=== PATIENT | male | born 1965 | race African-American/Black ===

== ENCOUNTER → 2017-07-01 | Outpatient (POV) | payer MEDICARE, MEDICAID, SELFPAY | PROVIDERS: Family Provider Emergency Medicine; PCP Emergency Medicine; Visit Provider Specialist | DX: R29.898 Other symptoms and signs involving the musculoskeletal system (principal); M79.601 Pain in right arm; M54.12 Radiculopathy, cervical region | CPT/HCPCS: 95819 ==

== ENCOUNTER → 2017-07-01 | Outpatient (POV) | payer MEDICARE, MEDICAID, SELFPAY | PROVIDERS: Family Provider Emergency Medicine; PCP Emergency Medicine; Visit Provider Specialist | DX: M79.601 Pain in right arm (principal); R29.898 Other symptoms and signs involving the musculoskeletal system; M54.12 Radiculopathy, cervical region ==

== ENCOUNTER → 2017-07-08 | Outpatient (POV) | payer MEDICARE, MEDICAID, SELFPAY | PROVIDERS: PCP Emergency Medicine; Visit Provider Specialist | DX: M79.601 Pain in right arm (principal); R29.898 Other symptoms and signs involving the musculoskeletal system; M54.12 Radiculopathy, cervical region | CPT/HCPCS: 95886; 95912 ==

== ENCOUNTER → 2017-08-05 | Outpatient (POV) | payer MEDICARE, MEDICAID, SELFPAY | PROVIDERS: Family Provider Emergency Medicine; PCP Emergency Medicine; Referring Provider Emergency Medicine; Visit Provider Nurse Anesthetist, Certified Registered | DX: G90.511 Complex regional pain syndrome I of right upper limb (principal) | CPT/HCPCS: 99202 ==

== ENCOUNTER 2018-04-18 09:30 | Inpatient (IN) ==
--- NOTE | 2018-04-18 09:37 | Emergency Department Note ---
ED Disposition Clinical Impression: Bilateral pneumonia Qualifiers: Pneumonia type: due to unspecified organism Lung location: unspecified part of lung Qualified Code(s): J18.9 - Pneumonia, unspecified organism Sepsis Qualifiers: Sepsis type: sepsis due to unspecified organism Qualified Code(s): A41.9 - Sepsis, unspecified organism UTI (urinary tract infection) Qualifiers: Urinary tract infection type: site unspecified Hematuria presence: without hematuria Qualified Code(s): N39.0 - Urinary tract infection, site not specified Disposition: Still a Patient Condition on Discharge: Serious - Critical Care Critical Care Time: Yes Attestation: On , the high probability of a clinically significant, sudden or life threatening deterioration of the following system(s) required my full and direct attention, intervention and personal management. The time I documented below is in addition to time spent performing reported procedures but includes the following listed in this critical care notation. Total Critical Care Time: 35 Vital system(s) involved:: Shock (Septic) My critical care processes included: Assessment & monitoring of V/S, Initial and Re-exams, Data Review/Interpretation, Coordinating Care, Medication Orders and management, Documentation Medical Decision Making - Mac Inquiry Pt receiving controlled substance: No Vital Signs: 04/18/18 09:31 04/18/18 09:45 04/18/18 10:08 Temperature 99.6 F Temperature Source Oral Pulse Rate [Left Radial] 90 87 Respiratory Rate 16 Blood Pressure [Right Arm] 83/43 92/44 97/57 Blood Pressure Mean [Right Arm] 56 60 70 Blood Pressure Source [Right Arm] Automatic Cuff Automatic Cuff Blood Pressure Position [Right Arm] Sitting Sitting 02 Sat by Pulse Oximetry 99 Oxygen Delivery Method 04/18/18 10:23 04/18/18 10:38 04/18/18 10:46 Temperature Temperature Source Pulse Rate [Left Radial] 83 86 Respiratory Rate 14 Blood Pressure [Right Arm] 108/61 99/69 106/63 Blood Pressure Mean [Right Arm] 76 79 77 Blood Pressure Source [Right Arm] Automatic Cuff Automatic Cuff Blood Pressure Position [Right Arm] Sitting Sitting 02 Sat by Pulse Oximetry 98 Oxygen Delivery Method Room Air 04/18/18 10:59 04/18/18 11:16 04/18/18 11:33 Temperature Temperature Source Pulse Rate [Left Radial] 73 76 Respiratory Rate Blood Pressure [Right Arm] 102/57 102/67 106/68 Blood Pressure Mean [Right Arm] 72 78 80 Blood Pressure Source [Right Arm] Automatic Cuff Automatic Cuff Automatic Cuff Blood Pressure Position [Right Arm] Sitting Sitting Sitting 02 Sat by Pulse Oximetry 100 100 Oxygen Delivery Method - Lab Data Lab Results 04/18/18 10:18: WBC 15.2 H, RBC 3.90 L, Hgb 10.9 L, Hct 33.7 L, MCV 86.4, MCH 27.9, MCHC 32.3, RDW 14.3, Plt Count 216, MPV 7.7, Neut % (Auto) 81.4 H, Lymph % (Auto) 10.8, [place] % (Auto) 7.4, Eos % (Auto) 0.2, Baso % (Auto) 0.2, Neut # ( Auto) 12.4 H, Lymph # (Auto) 1.7, [place] # (Auto) 1.1 H, Eos # (Auto) 0.0, Baso # (Auto) 0.0, Total Counted 100, Neutrophils % (Manual) 78 H, Band Neutrophils % 5.0, Lymphocytes % (Manual) 11, Monocytes % (Manual) 3, Eosinophils % (Manual) 1 , Metamyelocytes % 2.0 H, Platelet Estimate Normal, RBC Morphology Normal 04/18/18 10:18: Troponin I 0.04, Total Valproic Acid 63.1 04/18/18 10:18: Lactate 1.7 04/18/18 10:18: Ammonia 9 L 04/18/18 10:18: Sodium 142, Potassium 3.9, Chloride 106, Carbon Dioxide 25, Anion Gap 14.9, BUN 35 H, Creatinine 2.93 H, Estimated Creat Clear 46, Estimated GFR 23 L, Est GFR ( Amer) 27 L, Glucose 104, Calcium 8.1 L, Total Bilirubin 0.5, AST 107 H, ALT 31, Alkaline Phosphatase 92, Total Protein 6.8, Albumin 3.1 L, Globulin 3.7 H, Albumin/Globulin Ratio 0.8 L 04/18/18 10:22: Urine Color Yellow, Urine Appearance Sl cloudy, Urine pH 6.0, Ur Specific [place] 1.025, Urine Protein Trace, Urine Glucose (UA) Negative, Urine Ketones Trace, Urine Blood Negative, Urine Nitrate Positive, Urine Bilirubin Negative, Urine Urobilinogen 1.0, Ur Leukocyte Esterase 1+ A, Urine RBC Occasional, Urine WBC 20-50, Ur Squamous Epith Cells 3-5, Urine Bacteria 4+ Result diagrams: 04/18/18 10:18 04/18/18 10:18 Orders (Tests/Meds): ED MEDICATIONS Generic Name Dose Route Start Last Admin Trade Name Freq PRN Reason Stop Dose Admin Azithromycin 500 mg/ Sodium 250 mls @ 250 mls/hr 04/18/18 10:30 04/18/18 11: 21 Chloride IV 05/02/18 10:29 250 mls/hr Q24H JENNIFER Administration Protocol Ceftriaxone Sodium 1 gm/ 50 mls @ 100 mls/hr 04/18/18 10:30 04/18/18 10:43 Sodium Chloride IV 05/02/18 10:29 100 mls/hr Q24H JENNIFER Administration Protocol Discontinued Medications Generic Name Dose Route Start Last Admin Trade Name Magdalenoq PRN Reason Stop Dose Admin Sodium Chloride 500 mls @ 500 mls/hr 04/18/18 10:45 04/18/18 09:30 Sod Chlor 0.9% 500ml Bag IV 04/18/18 11:44 500 mls/hr .Q1H JENNIFER Administration Sodium Chloride 1,000 mls @ 999 mls/hr 04/18/18 10:45 04/18/18 10:42 Sod Chlor 0.9% 1000ml Bag IV 04/18/18 11:45 999 mls/hr .Q1H1M JENNIFER Administration Sodium Chloride 1,000 mls @ 999 mls/hr 04/18/18 10:45 04/18/18 10:56 Sod Chlor 0.9% 1000ml Bag IV 04/18/18 11:45 999 mls/hr .Q1H1M JENNIFER Administration Sodium Chloride 1,000 ml 04/18/18 09:46 04/18/18 09:40 Sod Chlor 0.9% 1000ml Bag IV 04/18/18 09:47 1,000 ml BOLUS ONE Administration ORDERS Category Date Time Status Diarrhea Panel, PCR Stat Lab 04/18/18 09:47 Ordered Blood Culture Stat Micro 04/18/18 09:51 Ordered Urine Culture Stat Micro 04/18/18 10:22 Received - Radiology Data #1 Image(s): Chest Image Reviewed: Yes I reviewed the patient's radiology image Right upper lobe, left lower lobe, and possibly the right lower lobe infiltrates. - ECG Data Tracing #1 EKG interpreted by Dewayne Allen MD: Rhythm: sinus Rate: [address] [place]: Left Ectopy: none Conduction: normal ST Segment Changes: none T Wave Changes: Nonspecific Q Waves: none LVH Prior electrocardiagrams reviewed. No change from prior tracings. - Physician Consults Physician Consulted: Maya Time: 11:34 Reason -: Admission Comment/Response: Agrees to admit the patient to the hospital. We discussed the patient's clinical information, including history, exam, laboratory and radiology results and ED course. Per hospital procedure, I will write temporary bridge inpatient orders on the patient. Specific orders requested by the admitting physician: Continue antibiotics, IV fluids - Tissue Perfus/Sepsis Re-Eval Reperfusion Exam Performed: Yes Date Performed: 04/18/18 Time Performed: 11:24 Sepsis Follow-Up: Yes: Respiratory exam, Cardiovascular exam, Capillary refill, Peripheral pulse strength, Peripheral pulse location, Skin exam, Vital Signs General Adult HPI - General Chief complaint: Weakness Stated complaint: hypotension Time Seen by Provider: 04/18/18 09:37 - History of Present Illness HPI narrative: Brought in by parents from halfway. Report is low blood pressure. Patient denies any pain. Says he feels "okay". Endorses diarrhea, but denies cough, URI symptoms, vomiting, fever. - Related Data Home Medications Medication Instructions Recorded Confirmed Divalproex Sodium [Depakote] 500 mg PO HS 04/18/18 04/18/18 Gabapentin [Gabapentin 800mg Tab] 800 mg PO BID 04/18/18 04/18/18 Haloperidol 10 mg PO TID 04/18/18 04/18/18 Insulin Detemir [Levemir 100 15 unit SQ HS 04/18/18 04/18/18 units/mL 10mL vial] LORazepam [Ativan 0.5mg tablet] 0.5 mg PO TID 04/18/18 04/18/18 Linagliptin [Tradjenta] 5 mg PO DAILY 04/18/18 04/18/18 Metformin HCl [Metformin 500mg 1,000 mg PO BID 04/18/18 04/18/18 Tablet] Pioglitazone HCl 15 mg PO DAILY 04/18/18 04/18/18 Quetiapine Fumarate [Seroquel 400 mg PO BID 08/24/18 08/24/18 100mg Tablet] risperiDONE [Risperidone] 4 mg PO BID 04/18/18 04/18/18 Allergies Allergy/AdvReac Type Severity Reaction Status Date / Time No Known Allergies Allergy Verified 04/18/18 09:58 [facility] History I have reviewed the patient's past medical history: Yes ROS Obtained: Yes All systems reviewed & no additional complaints - Constitutional Constitutional: Denies fever(s) - ENT Ears, Nose, Mouth, and Throat: Denies nasal discharge, Denies sore throat - Cardiovascular Cardiovascular: Denies chest pain - Respiratory Respiratory: No cough, No dyspnea - Gastrointestinal Gastrointestingal: Reports: diarrhea. Denies: abdominal pain, vomiting - Genitourinary Male Genitourinary: Denies difficulty urinating - Musculoskeletal Musculoskeletal: Denies back pain, Denies neck pain - Neurologic Neurologic: Denies headache(s) Physical Exam - General General appearance: in no apparent distress Comment: With eyes closed. Opens eyes on command. Slow to respond, but answers questions appropriately. Speech difficult to understand, mumbles. Food present in mouth. - Head Head exam: atraumatic, normocephalic, normal inspection - Eye Eye exam: Present: normal appearance, PERRL, EOMI - ENT ENT exam: Present: mucous membranes dry - Neck Neck exam: Present: normal inspection, full ROM, trachea midline. Absent: meningismus, lymphadenopathy - Chest Chest inspection: Present: normal inspection, symmetric chest wall rise. Absent : tenderness - Respiratory Respiratory exam: Present: normal lung sounds bilaterally. Absent: respiratory distress - Cardiovascular Cardiovascular exam: Present: regular rate, normal rhythm. Absent: JVD - Abdominal Exam Abdominal exam: Present: soft, normal bowel sounds. Absent: distention, tenderness, guarding - Extremities Exam Extremities exam: Present: normal inspection, full ROM, normal capillary refill. Absent: calf tenderness - Back Exam Back exam: Present: normal inspection. Absent: tenderness - Neurological Exam Neurological exam: Present: alert, other (knows day of week, but not year. knows he's in the hospital) - Psychiatric Psychiatric exam: Present: flat affect - Skin Skin exam: Present: warm, dry, intact, normal color
[2018-04-18 10:37] LABS: Basophils % 0.2 % (0.1-2.0); Eosinophils % 0.2 % (0.1-12.0); Hematocrit 33.7 % (42.0-52.0); Hemoglobin 10.9 g/dL (14.1-18.0); Lymphocytes # 1.7 K/mm3 (0.7-4.5); Lymphocytes % 10.8 K/mm3 (10-50); Mean Corpuscular HGB Conc 32.3 g/dL (31.8-35.4); Mean Corpuscular Hemoglobin 27.9 pg (27.0-31.2); Mean Corpuscular Volume 86.4 fl (80-94); Mean Platelet Volume 7.7 fl (7.4-10.4); Monocytes # 1.1 K/mm3 (0.1-1.0); Monocytes % 7.4 % (1.7-9.3); Neutrophils # 12.4 K/mm3 (1.8-7.8); Neutrophils % 81.4 % (37.0-80.0); Platelet Count 216 K/mm3 (142-424); Red Cell Distribution Width 14.3 % (11.5-17.5); White Blood Count 15.2 K/mm3 (4.8-10.8)
[2018-04-18 10:56] LABS: Microscopic, Urine URINE MICROSCOPIC (MICROSCOPIC)
[2018-04-18 11:08] LABS: Eosinophils % 1 % (0-3); Lymphocytes % 11 % (10-50); Monocytes % 3 % (2-9); Neutrophils % 78 % (42-76); Total Cells Counted 100
[2018-04-18 11:09] LABS: RBC Morphology Normal
[2018-04-18 11:18] LABS: Appearance,Urine SL CLOUDY (Clear); Blood, Urine Negative (Negative); Color,Urine YELLOW (Yellow); Glucose,Urine (UA) Negative (Negative); Ketones,Urine TRACE (Negative); Leukocyte Esterase,Urine 1+ (Negative); Protein,Urine TRACE (Negative); Specific Gravity, Urine 1.025 (1.005-1.030)
[2018-04-18 11:27] LABS: Valproic Acid, (Depakene) 63.1 ug/mL (50-100)
[2018-04-18 11:35] LABS: Anion Gap 14.9 mEq/L (5-15); Bilirubin,Total 0.5 mg/dL (0.2-1.0); Calcium 8.1 mg/dL (8.5-10.1); Potassium 3.9 mmoL/L (3.5-5.1)
[2018-04-18 11:36] LABS: Albumin Level 3.1 gm/dL (3.4-5.0); Albumin/Globulin Ratio 0.8 (1.1-1.8); Globulin 3.7 gm/dl (1.3-3.2); Total Protein,Serum 6.8 gm/dL (6.4-8.2)
[2018-04-18 11:41] LABS: Bilirubin,Urine Negative (Negative)
[2018-04-18 11:42] LABS: Bacteria,Urine 4+ /lpf; RBC,Urine Occasional #/hpf (0-3); WBC,Urine 20-50 #/hpf (0-3)
--- NOTE | 2018-04-18 12:32 | History & Physical Report ---
*Admission Date: 04/18/18 *Chief complaint: syncope *History of present illness: this black male from shelter -pt had not been feeling well over the last few days but declined to come to ed and had syncopal episode at shelter and was brought to ed - eport is low blood pressure. Patient denies any pain. Says he feels "okay". Endorses diarrhea, but denies cough, URI symptoms, vomiting, fever.pt is poor historian and was found to have cap-pt was admitted for ivf and abx [facility] History I have reviewed the patient's past medical history: Yes Medical History: Reports:: Diabetes Mellitus Type 2 - *Social History Alcohol Intake: never - Psychiatric History Expresses thoughts of harming self/others: None Suicide Plan Description: Clear Review of Systems - Review of Systems Review of systems:: pertinent systems reviewed and negative unless documented below - Constitutional Reports weakness, Denies fever(s) - Eyes Denies change in vision - ENT Denies sore throat - *Cardiovascular Reports fainting, Denies chest pain - *Respiratory Reports shortness of breath - *Gastrointestinal Denies abdominal pain - *Genitourinary Denies blood in urine - *Musculoskeletal Denies joint pain - Integumentary/Breasts Denies rash - *Neurologic Denies headache(s) - Psychiatric Reports anxiety Meds Home Medications Medication Instructions Recorded Confirmed Type Benztropine Mesylate 0.5 mg PO BID 04/18/18 04/18/18 History Divalproex Sodium [Depakote] 500 mg PO HS 04/18/18 04/18/18 History Doxepin HCl [Sinequan 25mg capsule] 25 mg PO TID 04/18/18 04/18/18 History Gabapentin [Gabapentin 800mg Tab] 800 mg PO BID 04/18/18 04/18/18 History Haloperidol 10 mg PO TID 04/18/18 04/18/18 History Insulin Detemir [Levemir 100 15 unit SQ DAILY 04/18/18 04/18/18 History units/mL 10mL vial] LORazepam [Ativan 0.5mg tablet] 0.5 mg PO TIDP PRN 04/18/18 04/18/18 History Linagliptin [Tradjenta] 5 mg PO DAILY 04/18/18 04/18/18 History Loratadine [Claritin] 10 mg PO DAILYP PRN 04/18/18 04/18/18 History Metformin HCl [Metformin 500mg 1,000 mg PO BIDWM 04/18/18 04/18/18 History Tablet] OXcarbazepine [Trileptal 300mg 600 mg PO BID 04/18/18 04/18/18 History tablet] Pioglitazone HCl 15 mg PO DAILY 04/18/18 04/18/18 History Quetiapine Fumarate [Seroquel 400 mg PO BID 04/18/18 04/18/18 History 100mg Tablet] risperiDONE [Risperidone] 4 mg PO BID 04/18/18 04/18/18 History Allergies Allergy/AdvReac Type Severity Reaction Status Date / Time No Known Allergies Allergy Verified 04/18/18 09:58 Exam Vital signs and Labs for Last 24 Hours: Temp Pulse Resp BP Pulse Ox 98 F 80 18 99/53 98 04/18/18 12:28 04/18/18 12:28 04/18/18 12:28 04/18/18 12:28 04/18/18 11:54 Laboratory Results - last 24 hr 04/18/18 10:18: WBC 15.2 H, RBC 3.90 L, Hgb 10.9 L, Hct 33.7 L, MCV 86.4, MCH 27.9, MCHC 32.3, RDW 14.3, Plt Count 216, MPV 7.7, Neut % (Auto) 81.4 H, Lymph % (Auto) 10.8, [place] % (Auto) 7.4, Eos % (Auto) 0.2, Baso % (Auto) 0.2, Neut # ( Auto) 12.4 H, Lymph # (Auto) 1.7, [place] # (Auto) 1.1 H, Eos # (Auto) 0.0, Baso # (Auto) 0.0, Total Counted 100, Neutrophils % (Manual) 78 H, Band Neutrophils % 5.0, Lymphocytes % (Manual) 11, Monocytes % (Manual) 3, Eosinophils % (Manual) 1 , Metamyelocytes % 2.0 H, Platelet Estimate Normal, RBC Morphology Normal 04/18/18 10:18: Troponin I 0.04, Total Valproic Acid 63.1 04/18/18 10:18: Lactate 1.7 04/18/18 10:18: Ammonia 9 L 04/18/18 10:18: Sodium 142, Potassium 3.9, Chloride 106, Carbon Dioxide 25, Anion Gap 14.9, BUN 35 H, Creatinine 2.93 H, Estimated Creat Clear 46, Estimated GFR 23 L, Est GFR ( Amer) 27 L, Glucose 104, Calcium 8.1 L, Total Bilirubin 0.5, AST 107 H, ALT 31, Alkaline Phosphatase 92, Total Protein 6.8, Albumin 3.1 L, Globulin 3.7 H, Albumin/Globulin Ratio 0.8 L 04/18/18 10:22: Urine Color Yellow, Urine Appearance Sl cloudy, Urine pH 6.0, Ur Specific [place] 1.025, Urine Protein Trace, Urine Glucose (UA) Negative, Urine Ketones Trace, Urine Blood Negative, Urine Nitrate Positive, Urine Bilirubin Negative, Urine Urobilinogen 1.0, Ur Leukocyte Esterase 1+ A, Urine RBC Occasional, Urine WBC 20-50, Ur Squamous Epith Cells 3-5, Urine Bacteria 4+ I & O for Last 24 hours: Intake & Output 04/16/18 04/17/18 04/18/18 04/19/18 11:59 11:59 11:59 11:59 Weight 250 lb - Constitutional no acute distress - *Routine HEENT Exam Head: Present: normocephalic Eye: Present: EOMI, PERRL ENT: Present: mucous membranes dry - *Routine Neck Exam Present: supple - *Routine Respiratory Exam Present: CTA bilaterally - *Routine Cardiovascular Exam Present: murmur - *Routine Abdominal Exam Present: soft - *Routine Extremities Exam Absent: calf tenderness - *Routine Skin Exam Present: intact - *Routine Neurological Exam Present: alert, oriented X3, CN II-XII intact - Routine Psychiatric Exam Present: normal affect Assessment and Plan (1) CAP (community acquired pneumonia) Current visit: Yes Status: Acute Category: Medical Code(s): J18.9 - Pneumonia, unspecified organism (2) Bilateral pneumonia Current visit: Yes Status: Acute Qualifiers: Pneumonia type: due to unspecified organism Lung location: unspecified part of lung Qualified Code(s): J18.9 - Pneumonia, unspecified organism Category: Medical Code(s): J18.9 - Pneumonia, unspecified organism (3) UTI (urinary tract infection) Current visit: Yes Status: Acute Qualifiers: Urinary tract infection type: site unspecified Hematuria presence: without hematuria Qualified Code(s): N39.0 - Urinary tract infection, site not specified Category: Medical Code(s): N39.0 - Urinary tract infection, site not specified (4) Anemia Current visit: Yes Status: Acute Qualifiers: Anemia type: unspecified type Qualified Code(s): D64.9 - Anemia, unspecified Category: Medical Code(s): D64.9 - Anemia, unspecified (5) Renal insufficiency Current visit: Yes Status: Acute Category: Medical Code(s): N28.9 - Disorder of kidney and ureter, unspecified
--- NOTE | 2018-04-18 16:12 | Pharmacy Consult Notes ---
[facility] Pharmacy VTE Monitoring - Patient Demographics Admission date: 04/18/18 Report Date: 04/18/18 Time: 16:12 Allergies/Adverse Reactions: Patient Allergies No Known Allergies Allergy (Verified 04/18/18 09:58) Height: 1.8 m Weight: 105.46 kg Patient Problems: Current Active Problems Bilateral pneumonia (Acute) Sepsis (Acute) UTI (urinary tract infection) (Acute) - VTE Risk Labs: VTE Related Lab Results Hgb 10.9 g/dL (14.1-18.0) L 04/18/18 10:18 Hct 33.7 % (42.0-52.0) L 04/18/18 10:18 Plt Count 216 K/mm3 (142-424) 04/18/18 10:18 BUN 35 mg/dL (7-18) H 04/18/18 10:18 Creatinine 2.93 mg/dL (0.70-1.30) H 04/18/18 10:18 Estimated Creat Clear 46 mL/min (0-300) 04/18/18 10:18 Was VTE Risk Assessment Performed: Yes VTE Score: 3 VTE Risk Level: Low Risk Clinical Trial Participant: No - Prophylaxis VTE Prophylaxis Ordered?: Yes Types of VTE Prophylaxis: TEDS Knee High Location of Applied Device: Right Leg, Left Leg
[2018-04-19 06:38] LABS: Basophils % 0.1 % (0.1-2.0); Eosinophils # 0.2 K/mm3 (0.0-0.4); Eosinophils % 1.4 % (0.1-12.0); Hematocrit 33.5 % (42.0-52.0); Hemoglobin 10.5 g/dL (14.1-18.0); Lymphocytes # 1.2 K/mm3 (0.7-4.5); Mean Corpuscular HGB Conc 31.4 g/dL (31.8-35.4); Mean Corpuscular Hemoglobin 27.5 pg (27.0-31.2); Mean Corpuscular Volume 87.5 fl (80-94); Mean Platelet Volume 7.9 fl (7.4-10.4); Monocytes # 0.7 K/mm3 (0.1-1.0); Monocytes % 6.7 % (1.7-9.3); Neutrophils # 8.9 K/mm3 (1.8-7.8); Platelet Count 188 K/mm3 (142-424); Red Blood Count 3.82 M/mm3 (4.60-6.20); Red Cell Distribution Width 14.3 % (11.5-17.5)
[2018-04-19 06:51] LABS: Anion Gap 12.2 mEq/L (5-15); Calcium 8.3 mg/dL (8.5-10.1); Potassium 4.2 mmoL/L (3.5-5.1)
--- NOTE | 2018-04-19 08:52 | Progress Note ---
Internal Medicine - PN: Subj *Date: 04/20/18 *Time: 09:16 Interval history: doing better - more alert Exam Vital signs and Labs for Last 24 Hours: Temp Pulse Resp BP Pulse Ox 99.7 F H 93 H 20 113/56 96 04/19/18 08:21 04/19/18 08:21 04/19/18 08:21 04/19/18 08:21 04/19/18 08:21 Laboratory Results - last 24 hr 04/18/18 10:18: WBC 15.2 H, RBC 3.90 L, Hgb 10.9 L, Hct 33.7 L, MCV 86.4, MCH 27.9, MCHC 32.3, RDW 14.3, Plt Count 216, MPV 7.7, Neut % (Auto) 81.4 H, Lymph % (Auto) 10.8, [place] % (Auto) 7.4, Eos % (Auto) 0.2, Baso % (Auto) 0.2, Neut # ( Auto) 12.4 H, Lymph # (Auto) 1.7, [place] # (Auto) 1.1 H, Eos # (Auto) 0.0, Baso # (Auto) 0.0, Total Counted 100, Neutrophils % (Manual) 78 H, Band Neutrophils % 5.0, Lymphocytes % (Manual) 11, Monocytes % (Manual) 3, Eosinophils % (Manual) 1 , Metamyelocytes % 2.0 H, Platelet Estimate Normal, RBC Morphology Normal 04/18/18 10:18: Troponin I 0.04, Total Valproic Acid 63.1 04/18/18 10:18: Lactate 1.7 04/18/18 10:18: Ammonia 9 L 04/18/18 10:18: Sodium 142, Potassium 3.9, Chloride 106, Carbon Dioxide 25, Anion Gap 14.9, BUN 35 H, Creatinine 2.93 H, Estimated Creat Clear 46, Estimated GFR 23 L, Est GFR ( Amer) 27 L, Glucose 104, Calcium 8.1 L, Total Bilirubin 0.5, AST 107 H, ALT 31, Alkaline Phosphatase 92, Total Protein 6.8, Albumin 3.1 L, Globulin 3.7 H, Albumin/Globulin Ratio 0.8 L 04/18/18 10:22: Urine Color Yellow, Urine Appearance Sl cloudy, Urine pH 6.0, Ur Specific [place] 1.025, Urine Protein Trace, Urine Glucose (UA) Negative, Urine Ketones Trace, Urine Blood Negative, Urine Nitrate Positive, Urine Bilirubin Negative, Urine Urobilinogen 1.0, Ur Leukocyte Esterase 1+ A, Urine RBC Occasional, Urine WBC 20-50, Ur Squamous Epith Cells 3-5, Urine Bacteria 4+ 04/18/18 15:48: POC Glucose 107 04/18/18 21:21: POC Glucose 102 04/19/18 06:13: WBC 11.0 H D, RBC 3.82 L, Hgb 10.5 L, Hct 33.5 L, MCV 87.5, MCH 27.5, MCHC 31.4 L, RDW 14.3, Plt Count 188, MPV 7.9, Neut % (Auto) 81.0 H, Lymph % (Auto) 11.0, [place] % (Auto) 6.7, Eos % (Auto) 1.4, Baso % (Auto) 0.1, Neut # (Auto) 8.9 H, Lymph # (Auto) 1.2, [place] # (Auto) 0.7, Eos # (Auto) 0.2, Baso # (Auto) 0.0 04/19/18 06:13: Sodium 141, Potassium 4.2, Chloride 108 H, Carbon Dioxide 25, Anion Gap 12.2, BUN 22 H D, Creatinine 1.65 H D, Estimated Creat Clear 76, Estimated GFR 44 L, Est GFR ( Amer) 53 L D, Glucose 113 H, Calcium 8.3 L 04/19/18 06:23: POC Glucose 94 I & O for Last 24 hours: Intake & Output 04/16/18 04/17/18 04/18/18 04/19/18 11:59 11:59 11:59 11:59 Intake Total 3488 / 3488 Output Total 1350 / 1350 Balance 2138 / 2138 Weight 232 lb 7.992 oz 232 lb 8 oz Microbiology Reports for the Last 24 Hours: Microbiology 04/18/18 10:22 Urine,Catheterized Urine Culture - Preliminary Gram Negative Rods - Constitutional no acute distress, obese - *Routine HEENT Exam Head: Present: normocephalic Eye: Present: EOMI, PERRL ENT: Present: mucous membranes dry - *Routine Neck Exam Present: supple - *Routine Respiratory Exam Present: rhonchi - *Routine Cardiovascular Exam Present: RRR, murmur - *Routine Abdominal Exam Present: soft - *Routine Extremities Exam Absent: calf tenderness - *Routine Skin Exam Present: intact - *Routine Neurological Exam Present: alert, CN II-XII intact - Routine Psychiatric Exam Present: normal affect Assessment and Plan (1) CAP (community acquired pneumonia) Current visit: Yes Status: Acute Category: Medical Code(s): J18.9 - Pneumonia, unspecified organism (2) Bilateral pneumonia Current visit: Yes Status: Acute Qualifiers: Pneumonia type: due to unspecified organism Lung location: unspecified part of lung Qualified Code(s): J18.9 - Pneumonia, unspecified organism Category: Medical Code(s): J18.9 - Pneumonia, unspecified organism (3) UTI (urinary tract infection) Current visit: Yes Status: Acute Qualifiers: Urinary tract infection type: site unspecified Hematuria presence: without hematuria Qualified Code(s): N39.0 - Urinary tract infection, site not specified Category: Medical Code(s): N39.0 - Urinary tract infection, site not specified (4) Anemia Current visit: Yes Status: Acute Qualifiers: Anemia type: unspecified type Qualified Code(s): D64.9 - Anemia, unspecified Category: Medical Code(s): D64.9 - Anemia, unspecified (5) Renal insufficiency Current visit: Yes Status: Acute Category: Medical Code(s): N28.9 - Disorder of kidney and ureter, unspecified
--- NOTE | 2018-04-20 09:20 | Progress Note ---
Internal Medicine - PN: Subj *Date: 04/20/18 *Time: 09:17 Interval history: doing ok with positive uti Exam Vital signs and Labs for Last 24 Hours: Temp Pulse Resp BP Pulse Ox 98.2 F 79 18 149/76 96 04/20/18 07:32 04/20/18 07:32 04/20/18 07:32 04/20/18 07:32 04/20/18 07:49 Laboratory Results - last 24 hr 04/19/18 09:05: Total Valproic Acid 39.6 L 04/19/18 12:10: POC Glucose 57 L 04/19/18 12:52: POC Glucose 117 H 04/19/18 16:50: POC Glucose 81 04/19/18 20:04: POC Glucose 131 H 04/20/18 06:22: POC Glucose 97 I & O for Last 24 hours: Intake & Output 04/17/18 04/18/18 04/19/18 04/20/18 11:59 11:59 11:59 11:59 Intake Total 3728 / 3728 2123 Output Total 1350 / 1350 Balance 2378 / 2378 2123 Weight 232 lb 7.992 oz 232 lb 8 oz 232 lb 4 oz Microbiology Reports for the Last 24 Hours: Microbiology 04/18/18 10:22 Urine,Catheterized Urine Culture - Final Escherichia coli - Constitutional no acute distress - *Routine HEENT Exam Head: Present: normocephalic Eye: Present: EOMI, PERRL ENT: Present: mucous membranes dry - *Routine Neck Exam Absent: JVD - *Routine Respiratory Exam Present: rhonchi. Absent: respiratory distress - *Routine Cardiovascular Exam Present: RRR, murmur - *Routine Abdominal Exam Present: soft - *Routine Extremities Exam Absent: calf tenderness - *Routine Skin Exam Present: intact - *Routine Neurological Exam Present: alert, CN II-XII intact - Routine Psychiatric Exam Present: normal affect Assessment and Plan (1) CAP (community acquired pneumonia) Current visit: Yes Status: Acute Category: Medical Code(s): J18.9 - Pneumonia, unspecified organism (2) Bilateral pneumonia Current visit: Yes Status: Acute Qualifiers: Pneumonia type: due to unspecified organism Lung location: unspecified part of lung Qualified Code(s): J18.9 - Pneumonia, unspecified organism Category: Medical Code(s): J18.9 - Pneumonia, unspecified organism (3) UTI (urinary tract infection) Current visit: Yes Status: Acute Qualifiers: Urinary tract infection type: site unspecified Hematuria presence: without hematuria Qualified Code(s): N39.0 - Urinary tract infection, site not specified Category: Medical Code(s): N39.0 - Urinary tract infection, site not specified (4) Anemia Current visit: Yes Status: Acute Qualifiers: Anemia type: unspecified type Qualified Code(s): D64.9 - Anemia, unspecified Category: Medical Code(s): D64.9 - Anemia, unspecified (5) Renal insufficiency Current visit: Yes Status: Acute Category: Medical Code(s): N28.9 - Disorder of kidney and ureter, unspecified (6) E. coli UTI (urinary tract infection) Current visit: Yes Status: Acute Category: Medical Code(s): N39.0 - Urinary tract infection, site not specified; B96.20 - Unspecified Escherichia coli [E. coli] as the cause of diseases classified elsewhere (7) Diabetes mellitus Current visit: Yes Status: Acute Qualifiers: Diabetes mellitus type: type 1 Diabetes mellitus complication status: with kidney complications Diabetes mellitus complication detail: with nephropathy Qualified Code(s): E10.21 - Type 1 diabetes mellitus with diabetic nephropathy Category: Medical Code(s): E11.9 - Type 2 diabetes mellitus without complications
[2018-04-21 08:03] LABS: Basophils % 0.3 % (0.1-2.0); Eosinophils # 0.2 K/mm3 (0.0-0.4); Eosinophils % 2.9 % (0.1-12.0); Hematocrit 35.4 % (42.0-52.0); Lymphocytes # 1.3 K/mm3 (0.7-4.5); Lymphocytes % 19.7 K/mm3 (10-50); Mean Corpuscular HGB Conc 31.1 g/dL (31.8-35.4); Mean Corpuscular Hemoglobin 26.9 pg (27.0-31.2); Mean Corpuscular Volume 86.3 fl (80-94); Mean Platelet Volume 7.8 fl (7.4-10.4); Monocytes # 0.5 K/mm3 (0.1-1.0); Monocytes % 7.5 % (1.7-9.3); Neutrophils # 4.7 K/mm3 (1.8-7.8); Neutrophils % 69.6 % (37.0-80.0); Platelet Count 215 K/mm3 (142-424); Red Cell Distribution Width 14.2 % (11.5-17.5); White Blood Count 6.8 K/mm3 (4.8-10.8)
[2018-04-21 08:12] LABS: Anion Gap 14.9 mEq/L (5-15); Potassium 3.9 mmoL/L (3.5-5.1)
[2018-04-21 08:34] LABS: Calcium 9.3 mg/dL (8.5-10.1)
--- NOTE | 2018-04-21 12:16 | Discharge Summary ---
General - General Admission date:: 04/18/18 Discharge date: 04/21/18 HPI HPI: this black male from [facility] -pt had not been feeling well over the last few days but declined to come to ed and had syncopal episode at halfway and was brought to ed - eport is low blood pressure. Patient denies any pain. Says he feels "okay". Endorses diarrhea, but denies cough, URI symptoms, vomiting, fever.pt is poor historian and was found to have cap-pt was admitted for ivf and abx Hospital Course Hospital Course: pt has did well with ivf and abx with no fever and had e coli uti and on correct abx - pt with no vomiting and at baseline mental status - pt with stable resp sx ahd has cap on xray Objective Vital signs: Temp Pulse Resp BP Pulse Ox 97.9 F 68 18 141/74 98 04/21/18 11:31 04/21/18 11:31 04/21/18 11:31 04/21/18 11:31 04/21/18 11:31 no acute distress - *Routine HEENT Exam Head: Present: normocephalic Eye: Present: EOMI, PERRL ENT: Present: mucous membranes dry - *Routine Neck Exam Present: supple. Absent: JVD - *Routine Respiratory Exam Present: decreased breath sounds, rhonchi - *Routine Cardiovascular Exam Present: RRR, murmur - *Routine Abdominal Exam Present: soft - *Routine Extremities Exam Absent: calf tenderness - *Routine Skin Exam Present: intact - *Routine Neurological Exam Present: alert, oriented X3, CN II-XII intact - Routine Psychiatric Exam Present: normal affect Comments: at baseline Results Labs on day of discharge: Labs from last 24 hours 04/21/18 04/21/18 04/21/18 11:27 07:55 07:55 WBC 6.8 D RBC 4.10 L Hgb 11.0 L Hct 35.4 L MCV 86.3 MCH 26.9 L MCHC 31.1 L RDW 14.2 Plt Count 215 MPV 7.8 Neut % (Auto) 69.6 Lymph % (Auto) 19.7 [place] % (Auto) 7.5 Eos % (Auto) 2.9 Baso % (Auto) 0.3 Neut # (Auto) 4.7 Lymph # (Auto) 1.3 [place] # (Auto) 0.5 Eos # (Auto) 0.2 Baso # (Auto) 0.0 Sodium 142 Potassium 3.9 Chloride 107 Carbon Dioxide 24 Anion Gap 14.9 BUN 11 D Creatinine 1.19 D Estimated Creat Clear 108 Estimated GFR 64 Est GFR ( Amer) 77 D Glucose 102 POC Glucose 103 Calcium 9.3 D 04/21/18 04/20/18 04/20/18 06:07 20:51 15:47 WBC RBC Hgb Hct MCV MCH MCHC RDW Plt Count MPV Neut % (Auto) Lymph % (Auto) [place] % (Auto) Eos % (Auto) Baso % (Auto) Neut # (Auto) Lymph # (Auto) [place] # (Auto) Eos # (Auto) Baso # (Auto) Sodium Potassium Chloride Carbon Dioxide Anion Gap BUN Creatinine Estimated Creat Clear Estimated GFR Est GFR ( Amer) Glucose POC Glucose 88 138 H 97 Calcium Preliminary micro results at discharge 04/18/18 10:18 Blood Culture - Preliminary Blood NO GROWTH AFTER 48 HOURS 04/18/18 09:51 Blood Culture - Preliminary Blood NO GROWTH AFTER 48 HOURS DS: Diagnosis - Discharge Diagnosis (1) CAP (community acquired pneumonia) Status: Acute (2) Bilateral pneumonia Status: Acute (3) UTI (urinary tract infection) Status: Acute (4) Anemia Status: Acute (5) Renal insufficiency Status: Acute (6) E. coli UTI (urinary tract infection) Status: Acute (7) Diabetes mellitus Status: Acute (8) Schizophrenia Status: Acute Discharge Plan - Patient Discharge Instructions ACTIVITY: Continue current activity DIET: continue same diet - Follow up Plan Disposition: Home, Self-Assisted Medications: Home Medications Medication Instructions Recorded Confirmed Type Benztropine Mesylate 0.5 mg PO BID 04/18/18 04/18/18 History Divalproex Sodium [Depakote] 500 mg PO HS 04/18/18 04/18/18 History Doxepin HCl [Sinequan 25mg capsule] 25 mg PO TID 04/18/18 04/18/18 History Gabapentin [Gabapentin 800mg Tab] 800 mg PO BID 04/18/18 04/18/18 History Haloperidol 10 mg PO TID 04/18/18 04/18/18 History Insulin Detemir [Levemir 100 15 unit SQ DAILY 04/18/18 04/18/18 History units/mL 10mL vial] LORazepam [Ativan 0.5mg tablet] 0.5 mg PO TIDP PRN 04/18/18 04/18/18 History Linagliptin [Tradjenta] 5 mg PO DAILY 04/18/18 04/18/18 History Loratadine [Claritin] 10 mg PO DAILYP PRN 04/18/18 04/18/18 History Metformin HCl [Metformin 500mg 1,000 mg PO BIDWM 04/18/18 04/18/18 History Tablet] OXcarbazepine [Trileptal 300mg 600 mg PO BID 04/18/18 04/18/18 History tablet] Pioglitazone HCl 15 mg PO DAILY 04/18/18 04/18/18 History Quetiapine Fumarate [Seroquel 400 mg PO BID 04/18/18 04/18/18 History 100mg Tablet] risperiDONE [Risperidone] 4 mg PO BID 04/18/18 04/18/18 History Prescriptions/Medication Reconciliation: New Doxepin HCl [Sinequan 25mg capsule] 25 mg PO TID capsule OXcarbazepine [Trileptal 300mg tablet] 600 mg PO BID tablet cephALEXin [Keflex 500mg Cap] 500 mg PO TID #30 cap Benztropine Mesylate [Cogentin 1mg tablet] 0.5 mg PO BID tablet Azithromycin [Zithromax 250mg tab] 250 mg PO DIRECTED #6 tab Continue Insulin Detemir [Levemir 100 units/mL 10mL vial] 15 unit SQ DAILY Linagliptin [Tradjenta] 5 mg PO DAILY LORazepam [Ativan 0.5mg tablet] 0.5 mg PO TIDP PRN PRN Reason: Agitation Pioglitazone HCl 15 mg PO DAILY risperiDONE [Risperidone] 4 mg PO BID Metformin HCl [Metformin 500mg Tablet] 1,000 mg PO BIDWM Quetiapine Fumarate [Seroquel 100mg Tablet] 400 mg PO BID Divalproex Sodium [Depakote] 500 mg PO HS OXcarbazepine [Trileptal 300mg tablet] 600 mg PO BID Benztropine Mesylate 0.5 mg PO BID Loratadine [Claritin] 10 mg PO DAILYP PRN PRN Reason: ALLERGIES Gabapentin [Gabapentin 800mg Tab] 800 mg PO BID Haloperidol 10 mg PO TID Doxepin HCl [Sinequan 25mg capsule] 25 mg PO TID
== END 2018-04-21 13:21 | disposition home or self-care (01) ==
LOC: ER 09:30 → 2ND 11:46
PROVIDERS: ADMIT Emergency Medicine; ATTEND Emergency Medicine

== ENCOUNTER 2018-10-05 12:33 | Observation (INO) | payer MEDICARE, OTHER, SELFPAY ==
[2018-10-05] VITALS (9 sets, daily range): BP systolic 120–149; BP diastolic 72–92; PULSE 57–98; RESP 18–20; TEMP 36.2–36.8; O2SAT 94–99; BMI 27.1; BMI 27.0
--- NOTE | 2018-10-05 12:36 | XR_ITS ---
XR chest portable HISTORY: Chest pain ITS.REASON: fall ORDERING PHYSICIAN: Gab Trejo MD PATIENT AGE: 53 years COMPARISON: Portable upright chest 04/21/2018 FINDINGS: This is a somewhat poor inspiration . There are somewhat ill-defined opacity in the right suprahilar region partially obscured by the anterior aspect of the right first rib. This could be secondary to adenopathy or possibly focal pneumonic infiltrate. A more prominent density was seen to this location on the previous chest film March 2018 and this could reflect postinflammatory scarring. Otherwise the right lung field is clear and left lung field is clear. There are multilevel degenerative changes of the thoracic spine. IMPRESSION: Post inflammatory scarring versus possible residual pneumonic infiltrate or recurrent pneumonic infiltrate right suprahilar region and right upper lobe
--- NOTE | 2018-10-05 12:36 | CT_ITS ---
CT cervical spine wo con INDICATION: Neck pain ITS.REASON: fall ORDERING PHYSICIAN: Gab Trejo MD PATIENT AGE: 53 years COMPARISON: None TECHNIQUE: Axial images obtained with sagittal and coronal reformats. All CT scans at the facility use one or more dose reduction, viz: automated exposure control, ma/kV adjustment per patient size (including targeted exams where dose is matched to indication, i.e. head), or iterative reconstruction technique. FINDINGS: The patient's cervical spine is tilted to the right somewhat. Otherwise there is normal curvature. C1-C7 appear intact. There is prominent anterior osteophytic spurring at the C6-7 level and C7-T1 levels. There is no fracture or subluxation. The spinal canal is normal size throughout. The prevertebral soft tissues are normal and the odontoid is normal. There are hypodense nodules in each thyroid lobe. These were noted previously. IMPRESSION: Stable mild degenerative changes lower cervical spine, no acute bony pathology noted. Agree the [facility] report
--- NOTE | 2018-10-05 12:36 | CT_ITS ---
CT lumbar spine wo con INDICATION: Low back pain ITS.REASON: fall ORDERING PHYSICIAN: Gab Trejo MD PATIENT AGE: 53 years COMPARISON: None TECHNIQUE: Axial images obtained with sagittal and coronal reformats. All CT scans at the facility use one or more dose reduction, viz: automated exposure control, ma/kV adjustment per patient size (including targeted exams where dose is matched to indication, i.e. head), or iterative reconstruction technique. FINDINGS: There is normal lordotic curvature. All lumbar vertebrae appear intact and disc spaces are well maintained throughout. There is no abnormal disc protrusion. There is minor multilevel anterior osteophytic spurring. There are mildly hypertrophic facet changes noted lower lumbar spine. There is mild sclerosis and spurring of both SI joints. IMPRESSION: Minor multilevel degenerative changes and mild bilateral sacroiliitis noted, basically agree with the [facility] report
--- NOTE | 2018-10-05 12:36 | XR_ITS ---
XR pelvis 1-2V HISTORY: Fall with injury and pain ITS.REASON: fall ORDERING PHYSICIAN: Gab Trejo MD PATIENT AGE: 53 years COMPARISON: None FINDINGS: The iliac bones and pubic bones appear intact. Both hips are normally articulated with no evidence of fracture. There is minor spurring of the acetabulum bilaterally. The SI joints are normal. IMPRESSION: Negative for acute fracture
--- NOTE | 2018-10-05 12:36 | CT_ITS ---
CT head/brain wo con COMPARISON: Noncontrast CT scan of brain 07/03/2018 HISTORY: Patient fell today possible head trauma TECHNIQUE: Multiaxial scans obtained from base skull to the vertex and were performed without IV contrast. FINDINGS: The base of skull appears normal. The mastoids are clear. The ventricular system is normal. There is no ischemic infarct or bleed and there are no extra-axial fluid collections. Sylvian fissures and cortical sulci are somewhat prominent. There is prominent calcification of the falx cerebra and there are prominent dural plaques at the apex of the brain in the midline. The bony calvarium is intact showing mild hyperostosis frontalis interna. IMPRESSION: Findings of mild age-appropriate cortical atrophy, no acute intracranial pathology noted, agree the [facility] report
--- NOTE | 2018-10-05 12:38 | HMH.EDFALL ---
ED Disposition Clinical Impression: Fall, Thyroid nodule, DJD (degenerative joint disease), lumbar, Renal insufficiency, Rhabdomyolysis Disposition: Still a Patient Condition on Discharge: Fair Referrals: Gab Trejo MD [Primary Care Provider] - - Critical Care Critical Care Time: No Attestation: On , the high probability of a clinically significant, sudden or life threatening deterioration of the following system(s) required my full and direct attention, intervention and personal management. The time I documented below is in addition to time spent performing reported procedures but includes the following listed in this critical care notation. Medical Decision Making - Medical Records Medical records reviewed: Yes: I reviewed the patient's medical records. - Mac Inquiry Pt receiving controlled substance: No Mac was queried for this patient: No Vital Signs: 10/05/18 12:35 10/05/18 14:04 Temperature 97.2 F L Temperature Source Oral Pulse Rate [Left Radial] 70 59 L Respiratory Rate 20 Blood Pressure [Right Arm] 120/72 123/79 Blood Pressure Mean [Right Arm] 88 93 Blood Pressure Source [Right Arm] Automatic Cuff Blood Pressure Position [Right Arm] Sitting 02 Sat by Pulse Oximetry 98 98 Oxygen Delivery Method Room Air - Lab Data Lab Results 10/05/18 12:42: Influenza Type A Ag Negative, Influenza Type B Ag Negative 10/05/18 12:42: Group A Strep Rapid Negative 10/05/18 13:00: WBC 4.0 L, RBC 4.06 L, Hgb 11.5 L, Hct 36.5 L, MCV 90.0, MCH 28.3, MCHC 31.5 L, RDW 15.4, Plt Count 132 L, MPV 7.4, Neut % (Auto) 48.1, Lymph % (Auto) 32.4, [place] % (Auto) 17.0 H, Eos % (Auto) 2.2, Baso % (Auto) 0.2, Neut # (Auto) 1.9, Lymph # (Auto) 1.3, [place] # (Auto) 0.7, Eos # (Auto) 0.1, Baso # (Auto) 0.0 10/05/18 13:00: Sodium 140, Potassium 4.0, Chloride 102, Carbon Dioxide 29, Anion Gap 13.0, BUN 25 H, Creatinine 1.71 H, Estimated Creat Clear 63, Estimated GFR 42 L, Est GFR ( Amer) 51 L, Glucose 117 H, Calcium 8.7, Total Bilirubin 0.4, AST 59 H, ALT 66, Alkaline Phosphatase 95, Total Creatine Kinase 723 H*, CK-MB (CK-2) 8.6 H*, CK-MB (CK-2) Rel Index 1.2, Troponin I < 0.02, Total Protein 6.9, Albumin 2.9 L, Globulin 4.0 H, Albumin/Globulin Ratio 0.7 L, Total Valproic Acid 50.8, Plasma/Serum Alcohol 0 Result diagrams: 10/05/18 13:00 10/05/18 13:00 Orders (Tests/Meds): ORDERS Category Date Time Status CT cervical spine wo con Stat Cat Scan 10/05/18 12:[address] head/brain wo con Stat Cat Scan 10/05/18 12:[address] lumbar spine wo con Stat Cat Scan 10/05/18 12:36 Taken XR chest portable Stat Exams 10/05/18 12:36 Taken XR pelvis 1-2V Stat Exams 10/05/18 12:36 Taken Drug Screen,Urine Stat Lab 10/05/18 12:38 Ordered Urinalysis and Microscopic Stat Lab 10/05/18 12:38 Ordered Strep Screen Confirmation Stat Micro 10/05/18 12:42 Received ECG Request by /Daryl Stat Y 10/05/18 12:36 Ordered - Radiology Data #1 Image(s): Chest, Pelvis Image Reviewed: Yes I reviewed the patient's radiology image Preliminary Findings: Normal/NAD - CT Data CT Scan: Head, C-Spine, L-Spine Time Received: 14:[address] Reviewed: Yes: I have viewed the radiologist's interpretation Preliminary Findings: Abnormal Findings Narrative: Please see V?RADS reports Medical Decision Narrative: Laith remained stable but sleepy most of his ED stay he was positive for renal insufficiency and elevated CK and MB. I discussed with Dr. Byrd who agreed to admit the patient for observation and IV fluid therapy. Fall HPI - General Stated Complaint: Fall Time Seen by Provider: 10/05/18 12:39 Mode of Arrival: EMS Source of Information: Patient, EMS - History of Present Illness HPI Narrative: 53 years old -F[place]ish male from [facility] on multiple medication for Parkinson's, psychiatric disorder including Depakote, SSRIs and Neurontin. He claims that he tripped over a dresser fell and hit his head compl
--- NOTE | 2018-10-05 12:41 | ED_ITS ---
ED Disposition Clinical Impression: Fall, Thyroid nodule, DJD (degenerative joint disease), lumbar, Renal insufficiency, Rhabdomyolysis Disposition: Still a Patient Condition on Discharge: Fair Referrals: Gab Trejo MD [Primary Care Provider] - - Critical Care Critical Care Time: No Attestation: On , the high probability of a clinically significant, sudden or life threatening deterioration of the following system(s) required my full and direct attention, intervention and personal management. The time I documented below is in addition to time spent performing reported procedures but includes the following listed in this critical care notation. Medical Decision Making - Medical Records Medical records reviewed: Yes: I reviewed the patient's medical records. - Mac Inquiry Pt receiving controlled substance: No Mac was queried for this patient: No Vital Signs: 10/05/18 12:35 10/05/18 14:04 Temperature 97.2 F L Temperature Source Oral Pulse Rate [Left Radial] 70 59 L Respiratory Rate 20 Blood Pressure [Right Arm] 120/72 123/79 Blood Pressure Mean [Right Arm] 88 93 Blood Pressure Source [Right Arm] Automatic Cuff Blood Pressure Position [Right Arm] Sitting 02 Sat by Pulse Oximetry 98 98 Oxygen Delivery Method Room Air - Lab Data Lab Results 10/05/18 12:42: Influenza Type A Ag Negative, Influenza Type B Ag Negative 10/05/18 12:42: Group A Strep Rapid Negative 10/05/18 13:00: WBC 4.0 L, RBC 4.06 L, Hgb 11.5 L, Hct 36.5 L, MCV 90.0, MCH 28.3, MCHC 31.5 L, RDW 15.4, Plt Count 132 L, MPV 7.4, Neut % (Auto) 48.1, Lymph % (Auto) 32.4, [place] % (Auto) 17.0 H, Eos % (Auto) 2.2, Baso % (Auto) 0.2, Neut # (Auto) 1.9, Lymph # (Auto) 1.3, [place] # (Auto) 0.7, Eos # (Auto) 0.1, Baso # (Auto) 0.0 10/05/18 13:00: Sodium 140, Potassium 4.0, Chloride 102, Carbon Dioxide 29, Anion Gap 13.0, BUN 25 H, Creatinine 1.71 H, Estimated Creat Clear 63, Estimated GFR 42 L, Est GFR ( Amer) 51 L, Glucose 117 H, Calcium 8.7, Total Bilirubin 0.4, AST 59 H, ALT 66, Alkaline Phosphatase 95, Total Creatine Kinase 723 H*, CK-MB (CK-2) 8.6 H*, CK-MB (CK-2) Rel Index 1.2, Troponin I < 0.02, Total Protein 6.9, Albumin 2.9 L, Globulin 4.0 H, Albumin/Globulin Ratio 0.7 L, Total Valproic Acid 50.8, Plasma/Serum Alcohol 0 Result diagrams: 10/05/18 13:00 10/05/18 13:00 Orders (Tests/Meds): ORDERS Category Date Time Status CT cervical spine wo con Stat Cat Scan 10/05/18 12:[address] head/brain wo con Stat Cat Scan 10/05/18 12:[address] lumbar spine wo con Stat Cat Scan 10/05/18 12:36 Taken XR chest portable Stat Exams 10/05/18 12:36 Taken XR pelvis 1-2V Stat Exams 10/05/18 12:36 Taken Drug Screen,Urine Stat Lab 10/05/18 12:38 Ordered Urinalysis and Microscopic Stat Lab 10/05/18 12:38 Ordered Strep Screen Confirmation Stat Micro 10/05/18 12:42 Received ECG Request by /Daryl Stat Y 10/05/18 12:36 Ordered - Radiology Data #1 Image(s): Chest, Pelvis Image Reviewed: Yes I reviewed the patient's radiology image Preliminary Findings: Normal/NAD - CT Data CT Scan: Head, C-Spine, L-Spine Time Received: 14:[address] Reviewed: Yes: I have viewed the radiologist's interpretation Preliminary Findi
--- NOTE | 2018-10-05 12:41 | PC.NURSE ---
Glucose taken by EMS of 141
[2018-10-05 12:59] LABS: Strep Scrn Group A (Rapid) Negative (Negative)
[2018-10-05 13:13] LABS: Basophils % 0.2 % (0.1-2.0); Eosinophils # 0.1 K/mm3 (0.0-0.4); Eosinophils % 2.2 % (0.1-12.0); Hematocrit 36.5 % (42.0-52.0); Hemoglobin 11.5 g/dL (14.1-18.0); Lymphocytes # 1.3 K/mm3 (0.7-4.5); Lymphocytes % 32.4 % (10-50); Mean Corpuscular HGB Conc 31.5 g/dL (31.8-35.4); Mean Corpuscular Hemoglobin 28.3 pg (27.0-31.2); Mean Platelet Volume 7.4 fl (7.4-10.4); Monocytes # 0.7 K/mm3 (0.1-1.0); Neutrophils # 1.9 K/mm3 (1.8-7.8); Neutrophils % 48.1 % (37.0-80.0); Platelet Count 132 K/mm3 (142-424); Red Blood Count 4.06 M/mm3 (4.60-6.20); Red Cell Distribution Width 15.4 % (11.5-17.5)
--- NOTE | 2018-10-05 13:27 | PC.NURSE ---
Pt gone to radiology
[2018-10-05 13:39] LABS: Alanine Aminotransferase 66 U/L (12-78); Albumin Level 2.9 gm/dL (3.4-5.0); Albumin/Globulin Ratio 0.7 (1.1-1.8); Alkaline Phosphatase 95 U/L (46-116); Aspartate Amino Transferase 59 U/L (15-37); Bilirubin,Total 0.4 mg/dL (0.2-1.0); Blood Urea Nitrogen 25 mg/dL (7-18); CKMB Relative Index 1.2 U/L (0-4.0); Calcium 8.7 mg/dL (8.5-10.1); Carbon Dioxide 29 mmol/L (21.0-32.0); Chloride 102 mmol/L (98-107); Creatine Kinase 723 U/L (39-308); Creatinine Clearance Estimated 63 mL/min (50-200); Creatinine,Serum 1.71 mg/dL (0.70-1.30); Estimated Glomerular Filt Rate 42 ml/min (>60); Ethyl Alcohol 0 mg/dL (0-99); GFR (African American) 51 ML/MIN (>60); Glucose 117 mg/dL (74-106); Sodium 140 mmol/L (136-145); Total Protein,Serum 6.9 gm/dL (6.4-8.2); Troponin I < 0.02 ng/ml (0.00-0.06); Valproic Acid, (Depakene) 50.8 ug/mL (50-100)
[2018-10-05 13:40] LABS: Creatine Kinase MB 8.6 ng/ml (0.0-3.6)
--- NOTE | 2018-10-05 16:16 | PC.NURSE ---
PT ON FLOOR AT THIS TIME. PT ARRIVES TO FLOOR IN WHEELCHAIR. PT STANDS UP AND WALKS TO BED. PT ALERT. PT ONLY ORIENTED TO SELF AND BIRTHDAY. UNABLE TO DESCRIBE SITUATION, PLACE, TIME, PERSON. WHEN ASKED BDAY, PUT KEEPS REPEATING THE YEAR. AT TIMES PT CLOSES EYES WHILE TALKING AND BEGINS RAMBLING, OTHER TIMES PT TALKS PERFECT AND I CAN COMPLETELY UNDERSTAND HIM. PT ASKS FOR FOOD. I HAVE PREVIOUSLY TALKED TO DR [place] WHO MADE PT NPO. STATES I CAN ADVANCE DIET TO CARDIAC/DIABETIC WHEN PT WAKES UP MORE. SO I EXPLAIN THIS TO THE PT. PT'S EYES OPEN WIDE AND PT STATES, OH, OKAY, IT'LL COME BACK TO ME, I'M SURE IN JUST A LITTLE BIT. PT CLOSES HIS EYES AGAIN AND I CONTINUE WITH ASSESSMENT QUESTIONS. AT THIS TIME PT CANNOT/WILL NOT KEEP HIM EYES OPEN AND APPEARS TO FALL ASLEEP WHILE TALKING (BEGINS TO RAMBLE THEN STOPS TALKING). SO IT IS NOT SAFE TO ADVANCE DIET AT THIS TIME
[2018-10-05 16:51] LABS: POC Glucose,Bedside 73 (70-110)
--- NOTE | 2018-10-05 17:50 | PC.NURSE ---
MED REC NOT CORRECT FROM ER. MED REC REDONE AND IS CORRECT NOW. PT DOES NOT TAKE PROPRANOLOL, HALDOL OR THE LEVEMIR ANYMORE PER RECORDS FROM [facility]- SAYS MEDS DC'D ON PAPERWORK. CALLED DR WHITE, WHO IS STREET VENDOR FOR DR MORGAN. STREET VENDOR ORDERS TO DC THE MEDS AND ADD LOW SLIDING SCALE INSULIN
--- NOTE | 2018-10-05 18:06 | PC.NURSE ---
pt lying in bed at this time. expressed no needs and was given fresh ice water.
[2018-10-05 19:20] LABS: Troponin I < 0.02 ng/ml (0.00-0.06)
[2018-10-05 22:02] LABS: POC Glucose,Bedside 86 (70-110)
[2018-10-06 00:50] LABS: Troponin I < 0.02 ng/ml (0.00-0.06)
--- NOTE | 2018-10-06 03:27 | PC.NURSE ---
Addendum entered by Deborah Chambers RN 10/06/18 05:54: Pt assisted by staff to bathroom this AM. Tolerated this well, but gait is very unsteady. Bathed by staff and linens changed. FSBS this AM was 69; Pt was given orange juice and rechecked. FSBS recheck found to be 81. Original Note: Slept at intervals w/ no complaints voiced. Is alert to self and situation. Will carry on conversation w/ staff and has been cooperative while under my care. Remained on room air w/ no s/s of resp distress. Voids per urinal w/o difficulty. No BM this shift. TEDS in place to BLE. #18 RAC saline locked. #20 (L) hand w/ LR @ 50 mls/hr. VSS. Will continue to monitor.
[2018-10-06 03:48] VITALS: BP 134/76; PULSE 57; RESP 16; TEMP 36.6; O2SAT 100
[2018-10-06 06:13] LABS: POC Glucose,Bedside 69 (70-110)
[2018-10-06 06:13] LABS: POC Glucose,Bedside 81 (70-110)
[2018-10-06 07:49] LABS: Basophils % 0.3 % (0.1-2.0); Eosinophils # 0.1 K/mm3 (0.0-0.4); Eosinophils % 1.6 % (0.1-12.0); Hematocrit 37.8 % (42.0-52.0); Hemoglobin 12.3 g/dL (14.1-18.0); Lymphocytes # 0.9 K/mm3 (0.7-4.5); Lymphocytes % 24.6 % (10-50); Mean Corpuscular HGB Conc 32.6 g/dL (31.8-35.4); Mean Corpuscular Hemoglobin 28.4 pg (27.0-31.2); Mean Corpuscular Volume 87.2 fl (80-94); Mean Platelet Volume 6.9 fl (7.4-10.4); Monocytes # 0.7 K/mm3 (0.1-1.0); Monocytes % 19.9 % (1.7-9.3); Neutrophils % 53.6 % (37.0-80.0); Platelet Count 127 K/mm3 (142-424); Red Blood Count 4.33 M/mm3 (4.60-6.20); Red Cell Distribution Width 15.4 % (11.5-17.5); White Blood Count 3.7 K/mm3 (4.8-10.8)
--- NOTE | 2018-10-06 07:49 | HMH.PHAVTE ---
[facility] Pharmacy VTE Monitoring - Patient Demographics Admission date: 10/06/18 Report Date: 10/06/18 Time: 07:49 Allergies/Adverse Reactions: Patient Allergies No Known Allergies Allergy (Verified 04/18/18 09:58) Height: 1.91 m Weight: 98.157 kg Patient Problems: Current Active Problems Renal insufficiency (Acute) Fall (Acute) Thyroid nodule (Acute) DJD (degenerative joint disease), lumbar (Acute) Rhabdomyolysis (Acute) - VTE Risk Labs: VTE Related Lab Results Hgb 11.5 g/dL (14.1-18.0) L 10/05/18 13:00 Hct 36.5 % (42.0-52.0) L 10/05/18 13:00 Plt Count 132 K/mm3 (142-424) L 10/05/18 13:00 BUN 25 mg/dL (7-18) H 10/05/18 13:00 Creatinine 1.71 mg/dL (0.70-1.30) H 10/05/18 13:00 Estimated Creat Clear 63 mL/min (50-200) 10/05/18 13:00 Was VTE Risk Assessment Performed: No Clinical Trial Participant: No - Prophylaxis VTE Prophylaxis Ordered?: Yes Types of VTE Prophylaxis: TEDS Knee High Location of Applied Device: Bilateral Lower Extremeties
[2018-10-06 08:00] VITALS: BP 129/85; PULSE 77; RESP 18; TEMP 36.9; O2SAT 100
[2018-10-06 08:08] LABS: Anion Gap 14.2 mEq/L (5-15); Blood Urea Nitrogen 16 mg/dL (7-18); CKMB Relative Index 0.9 U/L (0-4.0); Calcium 8.7 mg/dL (8.5-10.1); Carbon Dioxide 27 mmol/L (21.0-32.0); Chloride 102 mmol/L (98-107); Creatine Kinase 503 U/L (39-308); Creatine Kinase MB 4.5 ng/ml (0.0-3.6); Creatinine Clearance Estimated 97 mL/min (50-200); Creatinine,Serum 1.19 mg/dL (0.70-1.30); Estimated Glomerular Filt Rate 63 ml/min (>60); GFR (African American) 77 ML/MIN (>60); Glucose 127 mg/dL (74-106); Potassium 4.2 mmoL/L (3.5-5.1); Sodium 139 mmol/L (136-145); Troponin I < 0.02 ng/ml (0.00-0.06)
--- NOTE | 2018-10-06 08:46 | HMH.PHAINT ---
HOME MED RECONCILIATION: CALLED [facility] AND [facility]IR [facility] FAXED OVER TO [facility] L[facility]. [facility] LIST IN [facility].
--- NOTE | 2018-10-06 10:27 | SW/DCPLANNER ---
Addendum entered by Kallie Saeed 10/06/18 13:51: This patient will discharge back to [facility] this afternoon. Original Note: Addendum entered by Kallie Saeed 10/06/18 12:21: I have notified Maria De Jesus regarding discharge order for this patient. Maria De Jesus has stated they will come evaluate this patient. I have notified patients nurse (Elis). Original Note: Patient currently resides at [facility]. I have spoke with Maria De Jesus from [facility] and she has stated that once patient is ready for discharge she will come evaluate this patient. I did inform Maria De Jesus that patient could be ready for discharge later this afternoon. I will follow up with Maria De Jesus if patient is discharged today.
[2018-10-06 11:25] LABS: POC Glucose,Bedside 87 (70-110)
--- NOTE | 2018-10-06 11:56 | HMH.HPDC ---
General - General Admission date:: 10/05/18 Discharge date: 10/06/18 *Admission Date: 10/06/18 *Chief complaint: fall *History of present illness: this bm is well known to me from [facility] - he had fall at [facility] and was eval in the ed -3 years old -[place] male from [facility] on multiple medication for Parkinson's, psychiatric disorder including Depakote, SSRIs and Neurontin. He claims that he tripped over a dresser fell and hit his head complaining of neck pain and lower back pain. Patient denies loss of consciousness he denies loss of urine or bowel control he denies having weakness involving the upper or lower extremities. Patient denies having chest pain or abdominal pain. He moves 4 extremities with no difficulty. [facility] History I have reviewed the patient's past medical history: Yes Medical History: Reports:: Diabetes Mellitus Type 2 Denies:: Cancer, Diabetes Mellitus Type 1, Internal Pacemaker, MRSA Have you ever received a pneumonia vaccine?: No Have you received a flu vaccine this season?: No Other Surgeries: No: Pacemaker Amputation: No - *Social History Smoking Status: Never smoker Alcohol Intake: never Occupational Status: disabled Housing: [facility] Household Members: other Travel in the last 8 weeks: None - Psychiatric History Expresses thoughts of harming self/others: None Suicide Plan Description: No Plan Family Hx:: Unable to obtain Review of Systems - Review of Systems Review of systems:: pertinent systems reviewed and negative unless documented below - Constitutional Denies fever(s) - Eyes Denies change in vision - ENT Denies sore throat - *Cardiovascular Denies chest pain at rest - *Respiratory Denies cough - *Gastrointestinal Denies abdominal pain - *Genitourinary Denies blood in urine - *Musculoskeletal Reports joint pain, Reports back pain, Reports limited joint movement - Integumentary/Breasts Denies rash - *Neurologic Denies seizure-like activity - Psychiatric Denies anxiety Exam Vital signs and Labs for Last 24 Hours: Temp Pulse Resp BP Pulse Ox 98.5 F 77 18 129/85 100 10/06/18 08:00 10/06/18 08:00 10/06/18 08:00 10/06/18 08:00 10/06/18 08:00 Laboratory Results - last 24 hr 10/05/18 12:42: Influenza Type A Ag Negative, Influenza Type B Ag Negative 10/05/18 12:42: Group A Strep Rapid Negative 10/05/18 13:00: WBC 4.0 L, RBC 4.06 L, Hgb 11.5 L, Hct 36.5 L, MCV 90.0, MCH 28.3, MCHC 31.5 L, RDW 15.4, Plt Count 132 L, MPV 7.4, Neut % (Auto) 48.1, Lymph % (Auto) 32.4, Custer % (Auto) 17.0 H, Eos % (Auto) 2.2, Baso % (Auto) 0.2, Neut # (Auto) 1.9, Lymph # (Auto) 1.3, Custer # (Auto) 0.7, Eos # (Auto) 0.1, Baso # (Auto) 0.0 10/05/18 13:00: Sodium 140, Potassium 4.0, Chloride 102, Carbon Dioxide 29, Anion Gap 13.0, BUN 25 H, Creatinine 1.71 H, Estimated Creat Clear 63, Estimated GFR 42 L, Est GFR ( Amer) 51 L, Glucose 117 H, Calcium 8.7, Total Bilirubin 0.4, AST 59 H, ALT 66, Alkaline Phosphatase 95, Total Creatine Kinase 723 H*, CK-MB (CK-2) 8.6 H*, CK-MB (CK-2) Rel Index 1.2, Troponin I < 0.02, Total Protein 6.9, Albumin 2.9 L, Globulin 4.0 H, Albumin/Globulin Ratio 0.7 L, Total Valproic Acid 50.8, Plasma/Serum Alcohol 0 10/05/18 16:42: POC Glucose 73 10/05/18 18:40: Troponin I < 0.02 10/05/18 21:06: POC Glucose 86 10/06/18 00:25: Troponin I < 0.02 10/06/18 05:45: POC Glucose 69 L 10/06/18 06:04: POC Glucose 81 10/06/18 07:29: WBC 3.7 L, RBC 4.33 L, Hgb 12.3 L, Hct 37.8 L, MCV 87.2, MCH 28.4, MCHC 32.6, RDW 15.4, Plt Count 127 L, MPV 6.9 L, Neut % (Auto) 53.6, Lymph % (Auto) 24.6, Custer % (Auto) 19.9 H, Eos % (Auto) 1.6, Baso % (Auto) 0.3, Neut # (Auto) 2.0, Lymph # (Auto) 0.9, Custer # (Auto) 0.7, Eos # (Auto) 0.1, Baso # (Auto) 0.0 10/06/18 07:29: Sodium 139, Potassium 4.2, Chloride 102, Carbon Dioxide 27, Anion Gap 14.2, BUN 16 D, Creatinine 1.19 D, Estimated Creat Clear 97, Estimated GFR 63, Est GFR ( Amer) 77 D, Gl
[2018-10-08 13:06] LABS: Peripheral Smear Review Scanned Result
== END 2018-10-06 13:48 | disposition home or self-care (01) ==
LOC: ER 14:58 → 2ND 15:40
PROVIDERS: Admitting Provider Internal Medicine Adolescent Medicine; Emergency Provider Emergency Medicine; PCP Emergency Medicine; Visit Provider Emergency Medicine
DX: M62.82 Rhabdomyolysis; D64.9 Anemia, unspecified; D69.6 Thrombocytopenia, unspecified; F20.9 Schizophrenia, unspecified; E11.9 Type 2 diabetes mellitus without complications; Z79.899 Other long term (current) drug therapy; G20 Parkinson's disease; W01.190A Fall on same level from slipping, tripping and stumbling with subsequent striking against furniture, initial encounter; M54.2 Cervicalgia; R07.9 Chest pain, unspecified; M46.1 Sacroiliitis, not elsewhere classified
CPT/HCPCS: 36415; 70450; 71045; 72125; 72131; 72170; 80048; 80053; 80164; 82550; 82553; 82962; 84484; 85025; 85060; 87275; 87276; 87430; 93005; 96365; 99284; G0378

== ENCOUNTER → 2018-10-28 06:25 | Outpatient (CLI) | payer MEDICARE, OTHER, SELFPAY ==
--- NOTE | 2018-10-28 06:34 | NM_ITS ---
History and Indications: Hypertension diabetes, hyperlipidemia, chest pain shortness of breath abnormal EKG. Procedure: Patient received a 0.4 mg of intravenous Lexiscan, resting heart rate was 51 bpm resting blood pressure 165/72, with Lexiscan maximum heart rate achieved was 73 bpm is less than 85% of the maximum predicted heart rate and a blood pressure was 125/68. With Lexiscan patient complained of stomach discomfort Electrocardiogram: Resting electrocardiogram showed sinus bradycardia nonspecific ST-T changes, with Lexiscan there is less than 1.5 mm segment depression noted from the baseline EKG. The EKG portion of the Lexiscan Myoview is nondiagnostic. Cardiac stress and resting SPECT images: Cardiac stress and resting SPECT images were obtained using technetium 99 Myoview 31.0 mCi at stress and 9.9 mCi at rest. Gated SPECT further analysis of segmental wall motion and calculation of the ejection fraction also done. Cardiac stress and resting SPECT images show a fixed defect involving the inferior wall with normal contractility in the gated SPECT is likely secondary to soft tissue attenuation, no reversible ischemia seen. Computer derived ejection fraction is 54% with no regional wall motion abnormality, right ventricle is normal size and contractility. Conclusion: 1. The EKG portion of the Lexiscan Myoview is nondiagnostic. 2. No scintigraphic evidence of reversible ischemia seen, computer derived ejection fraction is 54% with no regional wall motion abnormality, right ventricle are normal size and contractility. 3. Normal Lexiscan Myoview study.
--- NOTE | 2018-10-28 06:34 | CA_ITS ---
PROCEDURE: 2-D M-mode and color Doppler study INDICATIONS FOR THE TEST: Chest pain X COPD Heart Murmur Tobacco Smoking Palpitations Fatigue Syncope Edema HypertensionXDiabetes MellitusX Rheumatic Fever SOBXDOE Obesity Hyperlipidemia Family History HD Additional History ABN EKG PATIENT INFORMATION HEIGHT: 72 WEIGHT:247 GENDER: Male B/P:131/71 2-D/M-MODE INTERPRETATION: 2-D MEASUREMENTS OBSERVED VALUES IN CMS Right Ventricular Dimension (RVDd) 1.7 Interventricular Septum (Thickness)(IVsd) 1.2 Left Ventricular Internal Dimensions(LVIDd) 4.3 Left Ventricular Posterior Wall (Thickness)(LVPWd) .9 Aortic Root 3.6 Aortic Cusp Separation 1.8 Left Atrial Dimensions (LAD) 2.3 2D 1. Left atrium is mildly enlarged, left ventricle is normal size, mild concentric left ventricular hypertrophy, visually estimated ejection fraction of 55% with no regional wall motion abnormality. 2. The right atrium and right ventricle are normal size and contractility. 3. The aortic valve is minimally thickened and calcified. 4. The mitral and tricuspid valvular grossly normal. 5. The pulmonic valve is poorly visualized. 6. No significant pericardial effusion noted. DOPPLER INTERROGATION: Doppler interrogation of the aortic, mitral and tricuspid valvular presence of mild mitral and tricuspid regurgitation, tricuspid regurgitation jet velocity is inadequate for calculation of the right ventricular systolic pressure, grade 1 diastolic dysfunction seen without tissue Doppler evidence of raised left atrial pressure. CONCLUSION: 1. Mildly enlarged left atrium, normal left ventricular size, mild concentric left ventricular hypertrophy, visually estimated ejection fraction of 55% with no regional wall motion abnormality. Grade 1 diastolic dysfunction seen without tissue Doppler evidence of raised left atrial pressure. 2. Mild mitral and tricuspid regurgitation. 3. No significant pericardial effusion noted.
--- NOTE | 2018-10-28 08:06 | HMH.ITSHM ---
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 []LOPERAMIDE LORATADINE LORAZEPAM SYSTANE ULTRA TRADJENTA BENZTROPINE DIVALPROEX DOXEPIN GABAPENTIN LISINOPRIL OXCARBAZEPINE PIOGLITAZONE QUETIAPINE RISPERIDONE
== END ==
PROVIDERS: PCP Emergency Medicine; Visit Provider Internal Medicine
DX: I10 Essential (primary) hypertension (principal); R06.00 Dyspnea, unspecified; R07.9 Chest pain, unspecified; R94.31 Abnormal electrocardiogram [ECG] [EKG]
CPT/HCPCS: 78452; 93017; 93306; A9502; J2785

== ENCOUNTER → 2018-11-10 14:40 | Outpatient (POV) | payer MEDICARE, OTHER, SELFPAY ==
[2018-11-10 15:23] LABS: Microscopic, Urine URINE MICROSCOPIC (MICROSCOPIC)
[2018-11-10 15:47] LABS: Appearance,Urine CLEAR (Clear); Bilirubin,Urine Negative (Negative); Blood, Urine Negative (Negative); Color,Urine YELLOW (Yellow); Glucose,Urine (UA) Negative (Negative); Ketones,Urine TRACE (Negative); Leukocyte Esterase,Urine Negative (Negative); Nitrate,Urine Negative (Negative); PH,Urine 5.5 (5.0-8.5); Protein,Urine Negative (Negative); Specific Gravity, Urine 1.025 (1.005-1.030)
[2018-11-10 16:01] LABS: Bacteria,Urine Trace /lpf; Creatinine,Urine Random 185 mg/dL (20-320); Total Protein,Urine Random 16.3 mg/dL (0.0-11.9)
[2018-11-10 17:08] LABS: Albumin Level 3.3 gm/dL (3.4-5.0); Anion Gap 14.5 mEq/L (5-15); Blood Urea Nitrogen 23 mg/dL (7-18); Carbon Dioxide 26 mmol/L (21.0-32.0); Chloride 107 mmol/L (98-107); Creatinine,Serum 1.34 mg/dL (0.70-1.30); Estimated Glomerular Filt Rate 55 ml/min (>60); GFR (African American) 67 ML/MIN (>60); Glucose 87 mg/dL (74-106); Phosphorous 3.9 mg/dL (2.4-4.9); Potassium 4.5 mmoL/L (3.5-5.1); Sodium 143 mmol/L (136-145)
== END ==
PROVIDERS: Visit Provider Internal Medicine Nephrology
DX: N17.9 Acute kidney failure, unspecified (principal)
CPT/HCPCS: 36415; 80069; 81001; 82570; 84155

== ENCOUNTER → 2019-07-14 10:31 | Outpatient (CLI) | payer MEDICARE, OTHER, SELFPAY ==
[2019-07-14 11:48] LABS: Hemoglobin A1C 12.6 % (0.0-7.0)
== END ==
PROVIDERS: Visit Provider Nurse Practitioner Psychiatric/Mental Health
DX: Z79.899 Other long term (current) drug therapy (principal)
CPT/HCPCS: 36415; 83036

== ENCOUNTER 2021-04-01 15:06 | Emergency (ER) | payer MEDICARE, MEDICAID, SELFPAY ==
[2021-04-01 15:02] VITALS: BP 91/58; PULSE 60; RESP 16; TEMP 36.9; O2SAT 99; BMI 29.8
--- NOTE | 2021-04-01 15:02 | INFXCTL.NOTE ---
Contacted [facility] about pt's tdap vaccination, the facility does not know if he's up to date with tdap.
--- NOTE | 2021-04-01 15:05 | CT_ITS ---
PROCEDURE INFORMATION: Exam: CT Head Without Contrast Exam date and time: 04/01/2021 3:05 PM Age: 55 years old Clinical indication: Injury or trauma; Fall; Laceration; Without residual foreign body; Forehead; Patient HX: Fell out of bed last night, unkown loc, lac above left eye; Additional info: Closed head injury TECHNIQUE: Imaging protocol: Computed tomography of the head without contrast. Radiation optimization: All CT scans at this facility use at least one of these dose optimization techniques: automated exposure control; mA and/or kV adjustment per patient size (includes targeted exams where dose is matched to clinical indication); or iterative reconstruction. COMPARISON: HEADWO CT head/brain wo con 10/05/2018 1:26 PM FINDINGS: Brain: Prominent sulci. Patchy hypodensity of the cerebral white matter which are nonspecific but likely secondary to microangiopathic changes. Cerebral ventricles: The ventricles are prominent secondary to diffuse volume loss/atrophy. Paranasal sinuses: Moderate opacification of the left maxillary sinus. Mastoid air cells: Visualized mastoid air cells are well aerated. Bones/joints: Unremarkable. No acute fracture. Soft tissues: Unremarkable. IMPRESSION: 1. Chronic age related changes but no evidence of acute intracranial pathology. 2. Moderate opacification of the left maxillary sinus.
--- NOTE | 2021-04-01 15:12 | HMH.EDFALL ---
ED Disposition Clinical Impression: Laceration of face Qualifiers: Encounter type: initial encounter Qualified Code(s): S01.81XA - Laceration without foreign body of other part of head, initial encounter Disposition: Home, Self-Care Condition on Discharge: Good Instructions: How to Prevent Falls Additional Instructions: Follow-up with your primary care physician in approximately 3 days for a wound check. Return to the emergency department if you feel worse in any way. Referrals: Gab Trejo MD [Primary Care Provider] - - Critical Care Critical Care Time: No Attestation: On , the high probability of a clinically significant, sudden or life threatening deterioration of the following system(s) required my full and direct attention, intervention and personal management. The time I documented below is in addition to time spent performing reported procedures but includes the following listed in this critical care notation. Medical Decision Making - Medical Records Medical records reviewed: Yes: I reviewed the patient's medical records. - Mac Inquiry Pt receiving controlled substance: No Vital Signs: 04/01/21 15:02 Temperature 98.4 F Temperature Source Oral Pulse Rate [Right] 60 Respiratory Rate 16 Blood Pressure [Right Arm] 91/58 L Blood Pressure Mean [Right Arm] 69 02 Sat by Pulse Oximetry 99 Oxygen Delivery Method Room Air Orders (Tests/Meds): ED MEDICATIONS Discontinued Medications Generic Name Dose Route Start Last Admin Trade Name Freq PRN Reason Stop Dose Admin Tetanus/Reduced Diphtheria/Acell Pertussis 0.5 ml 04/01/21 15:45 04/01/21 15:50 Tet/Diphth/Pert-Adult 0.5ml Syringe IM 04/01/21 15:46 0.5 ml .ONCE ONE Administration - CT Data CT Scan: Head Time Received: 16:[address] Reviewed: Yes: I have reviewed the patient's CT results, I have viewed the radiologist's interpretation Preliminary Findings: Abnormal (Chronic changes in maxillary opacification. No acute findings.) Fall HPI - General Chief Complaint: Fall Stated Complaint: lac Time Seen by Provider: 04/01/21 15:12 Mode of Arrival: EMS Source of Information: EMS Limitations: No Limitations Description of Symptoms (Recalled from ER Triage Doc. by RN): Pt via [facility] from [place] for laceration above left eye. Pt states he fell out of bed last night, unknown LOC. - History of Present Illness HPI Narrative: The patient states that he fell out of bed last night. He struck his head against the floor and sustained a laceration. He denies loss of consciousness. MD complaint: fall - Related Data Home Medications Medication Instructions Recorded Confirmed Pioglitazone HCl 30 mg PO DAILY 04/18/18 09/21/19 Lisinopril/Hydrochlorothiazide 10 - 12.5 mg PO DAILY 06/30/18 09/21/19 [Lisinopril-Hctz 10-12.5 mg Tab*] Acetaminophen [Non-Aspirin Extra 1,000 mg PO Q6HP PRN 10/05/18 09/21/19 Strength] Dextran 70/Hypromellose 2 drops OP Q8HP PRN 10/05/18 09/21/19 [Artificial Tears] Loperamide HCl [Loperamide] 2 mg PO Q3HP PRN 10/05/18 09/21/19 Loratadine [Allergy Relief] 10 mg PO DAILY 10/05/18 09/21/19 Propylene Glycol/Peg 400/Pf 1 each OP Q4HP PRN 10/05/18 09/21/19 [Systane 0.3-0.4% Eye Drops] linagliptin 5 mg tablet 5 mg PO DAILY 01/23/19 09/21/19 metoclopramide HCl 10 mg tablet 10 mg PO BID PRN tab 01/23/19 09/21/19 benztropine 0.5 mg tablet 1 mg PO BID 05/12/19 09/21/19 divalproex 250 mg tablet,delayed 500 mg PO TID tab 05/12/19 09/21/19 release risperidone 4 mg tablet 4 mg PO BID 05/12/19 09/21/19 haloperidol 5 mg tablet 2.5 mg PO BIDP PRN 01/12/20 Dextromethorphan HBr/Quinidine 20 mg PO DAILY 04/01/21 04/01/21 [Nuedexta 20-10 mg Capsule] Dextromethorphan HBr/Quinidine 20 mg PO Q12H 04/01/21 04/01/21 [Nuedexta 20-10 mg Capsule] Insulin Glargine,Hum.rec.anlog 20 unit SQ PM 04/01/21 04/01/21 [Basaglar Grantpen U-100] Linagliptin [Tradjenta 5mg tablet] 5 mg PO DAILY 04/01/21 04/01/21
[2021-04-01 15:26] VITALS: BP 132/79; PULSE 64; O2SAT 99
[2021-04-01 16:15] VITALS: BP 146/73; PULSE 47; O2SAT 99
--- NOTE | 2021-04-01 16:39 | PC.NURSE ---
Bernadette [facility] called for transport back to facility.
[2021-04-01 16:46] VITALS: BP 141/77; PULSE 48; RESP 18; TEMP 36.8; O2SAT 99
== END 2021-04-01 17:10 | disposition home or self-care (01) ==
PROVIDERS: Emergency Provider Emergency Medicine; PCP Emergency Medicine
DX: S01.81XA Laceration without foreign body of other part of head, initial encounter (principal); W06.XXXA Fall from bed, initial encounter; Y92.193 Bedroom in other specified residential institution as the place of occurrence of the external cause; Z23 Encounter for immunization; E11.9 Type 2 diabetes mellitus without complications; Z79.899 Other long term (current) drug therapy
CPT/HCPCS: 12013; 70450; 90715; 96372; 99282

== ENCOUNTER 2022-04-03 15:34 | Inpatient (IN) | payer MEDICARE, MEDICAID, SELFPAY ==
[2022-04-03] VITALS (8 sets, daily range): BP systolic 127–153; BP diastolic 74–89; PULSE 71–78; RESP 12–20; TEMP 37–37.8; O2SAT 95–98; BMI 32.5; BMI 31.4
--- NOTE | 2022-04-03 15:38 | CT_ITS ---
FINAL REPORT CLINICAL HISTORY: [facility] COMPARISON: 04/01/2021 FINDINGS: Axial images of the head were obtained without contrast. Coronal reformatted images were also obtained. This study was performed with techniques to keep radiation doses as low as reasonably achievable (ALARA). Individualized dose reduction techniques using automated exposure control or adjustment of mA and/or kV according to the patient's size were employed. There is generalized age-appropriate atrophy. Periventricular low-attenuation areas are seen consistent with mild chronic ischemic changes. There is no evidence of intracranial hemorrhage or mass. There is no evidence of acute infarct. There is no evidence of shift of the midline structures. No skull abnormality is seen on the bone window images. There is mucosal thickening in the left maxillary sinus, worse. IMPRESSION: Atrophy and mild periventricular chronic ischemic changes. No acute intracranial abnormality identified. Reviewed, Interpreted and Dictated by Nestor Shah III, MD Transcribed by Devin Pink Authenticated and [facility]
--- NOTE | 2022-04-03 15:38 | XR_ITS ---
FINAL REPORT CLINICAL HISTORY: cough, ams COMPARISON: 10/05/2018 FINDINGS: The heart size is normal. The mediastinum is normal. There is mild left base atelectasis or pneumonia. There are no pleural effusions. There is no pneumothorax. There is no osseous abnormality. IMPRESSION: Mild left base atelectasis or pneumonia. Reviewed, Interpreted and Dictated by Nestor Shah III, MD Transcribed by Devin Pink Authenticated and [facility]
--- NOTE | 2022-04-03 15:53 | PC.NURSE ---
1553 XR AT BEDSIDE
--- NOTE | 2022-04-03 15:53 | PC.NURSE ---
Radiology at BS for chest xr
--- NOTE | 2022-04-03 16:00 | PC.NURSE ---
[address] PER STRETCHER
--- NOTE | 2022-04-03 16:07 | PC.NURSE ---
1550 ED MD AT BEDSIDE FOR EVALUATION
--- NOTE | 2022-04-03 16:08 | PC.NURSE ---
[address]
[2022-04-03 16:12] LABS: Basophils # 0.1 K/mm3 (0-0.2); Basophils % 1.9 % (0.1-2.0); Eosinophils # 0.1 K/mm3 (0.0-0.4); Eosinophils % 1.5 % (0.1-12.0); Hematocrit 38.1 % (42.0-52.0); Lymphocytes # 0.7 K/mm3 (0.7-4.5); Lymphocytes % 18.6 % (10-50); Mean Corpuscular HGB Conc 31.5 g/dL (31.8-35.4); Mean Corpuscular Hemoglobin 28.9 pg (27.0-31.2); Mean Corpuscular Volume 91.7 fl (80-94); Mean Platelet Volume 9.3 fl (7.4-10.4); Monocytes # 0.8 K/mm3 (0.1-1.0); Monocytes % 20.7 % (1.7-9.3); Neutrophils # 2.2 K/mm3 (1.8-7.8); Neutrophils % 57.2 % (37.0-80.0); Platelet Count 105 K/mm3 (142-424); Red Blood Count 4.16 M/mm3 (4.60-6.20); White Blood Count 3.9 K/mm3 (4.8-10.8)
[2022-04-03 16:15] LABS: MANUAL DIFFERENTIAL MANUAL DIFFERENTIAL (MANUAL DIFF)
--- NOTE | 2022-04-03 16:19 | HMH.EDAMS ---
ED Disposition Clinical Impression: Elevated AST (SGOT), Renal insufficiency Altered mental status Qualifiers: Altered mental status type: disorientation Qualified Code(s): R41.0 - Disorientation, unspecified Rhabdomyolysis Qualifiers: Rhabdomyolysis type: non-traumatic Qualified Code(s): M62.82 - Rhabdomyolysis Disposition: Admitted As Inpatient Condition on Discharge: Fair Instructions: DI for Altered Mental Status Referrals: Provider,Referral, MD [Primary Care Provider] - - Critical Care Critical Care Time: No Attestation: On 04/03/22, the high probability of a clinically significant, sudden or life threatening deterioration of the following system(s) required my full and direct attention, intervention and personal management. The time I documented below is in addition to time spent performing reported procedures but includes the following listed in this critical care notation. Medical Decision Making - Medical Records Medical records reviewed: Yes: I reviewed the patient's medical records. - Mac Inquiry Pt receiving controlled substance: No Vital Signs: 04/03/22 15:31 04/03/22 16:21 04/03/22 16:30 Temperature 99.6 F Temperature Source Oral Pulse Rate 72 74 Pulse Rate [Radial] 71 Respiratory Rate 12 12 12 Blood Pressure 148/74 H 151/79 H Blood Pressure [Left Arm] 144/85 H Blood Pressure Mean 99 95 Blood Pressure Mean [Left Arm] 104 Blood Pressure Source [Left Arm] Automatic Cuff Blood Pressure Position [Left Arm] Sitting 02 Sat by Pulse Oximetry 96 95 95 Oxygen Delivery Method Room Air 04/03/22 17:00 04/03/22 17:30 04/03/22 18:00 Temperature Temperature Source Pulse Rate 77 72 Pulse Rate [Radial] Respiratory Rate 13 12 12 Blood Pressure 153/74 H 143/79 H 141/79 H Blood Pressure [Left Arm] Blood Pressure Mean 100 Blood Pressure Mean [Left Arm] Blood Pressure Source [Left Arm] Blood Pressure Position [Left Arm] 02 Sat by Pulse Oximetry 98 98 Oxygen Delivery Method - Lab Data Lab Results 04/03/22 15:50: WBC 3.9 L, RBC 4.16 L, Hgb 12.0 L, Hct 38.1 L, MCV 91.7, MCH 28.9, MCHC 31.5 L, RDW 15.0, Plt Count 105 L, MPV 9.3, Neut % (Auto) 57.2, Lymph % (Auto) 18.6, Jasper % (Auto) 20.7 H, Eos % (Auto) 1.5, Baso % (Auto) 1.9, Neut # (Auto) 2.2, Lymph # (Auto) 0.7, Jasper # (Auto) 0.8, Eos # (Auto) 0.1, Baso # (Auto) 0.1, Total Counted 100, Neutrophils % (Manual) 59, Lymphocytes % (Manual) 27, Monocytes % (Manual) 14 H, Platelet Estimate Slight decrease, RBC Morphology Normal 04/03/22 15:50: Sodium 143, Potassium 3.9, Chloride 105, Carbon Dioxide 30, Anion Gap 11.9, BUN 43 H, Creatinine 2.30 H, Estimated Creat Clear 54, Estimated GFR 29 L, Est GFR ( Amer) 36 L, Glucose 105 H, Calcium 9.7, Total Bilirubin 0.8, AST 574 H*, ALT 177 H, Alkaline Phosphatase 82, Total Creatine Kinase 23356 H*, Total Protein 7.3, Albumin 4.1, Globulin 3.2, Albumin/Globulin Ratio 1.3, Lipase 58 04/03/22 17:40: Urine Color Yellow, Urine Appearance Clear, Urine pH 5.5, Ur Specific Converse 1.025, Urine Protein Negative, Urine Glucose (UA) Negative, Urine Ketones Trace, Urine Blood Negative, Urine Nitrate Negative, Urine Bilirubin 1+ A, Urine Urobilinogen 2.0, Ur Leukocyte Esterase Negative, Urine RBC Occasional, Urine WBC Occasional, Ur Squamous Epith Cells Occasional, Urine Bacteria 2+ Result diagrams: 04/03/22 15:50 04/03/22 15:50 Orders (Tests/Meds): ED MEDICATIONS Generic Name Dose Route Start Last Admin Trade Name Freq PRN Reason Stop Dose Admin Sodium Chloride 1,000 mls @ 999 mls/hr 04/03/22 17:00 04/03/22 16:57 Sod Chlor 0.9% 1000ml Bag IV 04/03/22 18:00 999 mls/hr .Q1H1M JENNIFER Administration ORDERS Category Date Time Status Hepatitis Panel (4) Stat Lab 04/03/22 17:40 Received Urine Culture Stat Micro 04/03/22 17:40 Received - CT Data CT Scan: Head, Abdomen, Pelvis Time Received: 18:[address] Reviewed: Yes: I have reviewed the patien
[2022-04-03 16:34] LABS: Chloride 105 mmol/L (98-107); Potassium 3.9 mmoL/L (3.5-5.1); Sodium 143 mmol/L (136-145)
[2022-04-03 16:36] LABS: Alanine Aminotransferase 177 U/L (12-78); Alkaline Phosphatase 82 U/L (38-126); Anion Gap 11.9 mEq/L (5-15); Aspartate Amino Transferase 574 U/L (17-59); Bilirubin,Total 0.8 mg/dl (0.2-1.3); Blood Urea Nitrogen 43 mg/dl (9-20); Carbon Dioxide 30 mmol/L (22.0-30.0); Creatinine Clearance Estimated 54 mL/min (50-200); Estimated Glomerular Filt Rate 29 ml/min (>60); GFR (African American) 36 ML/MIN (>60)
[2022-04-03 16:37] LABS: Albumin Level 4.1 g/dl (3.5-5.0); Albumin/Globulin Ratio 1.3 (1.1-1.8); Calcium 9.7 mg/dl (8.4-10.2); Globulin 3.2 g/dL (1.3-3.2); Glucose 105 mg/dl (74-100); Lipase 58 U/L (23-300); Total Protein,Serum 7.3 g/dl (6.3-8.2)
--- NOTE | 2022-04-03 16:37 | PC.NURSE ---
1620 ROUNDED ON PT, WARM BLANKET PROVIDED
--- NOTE | 2022-04-03 16:53 | CT_ITS ---
PROCEDURE INFORMATION: Exam: CT Abdomen And Pelvis Without Contrast Exam date and time: 04/03/2022 5:07 PM Age: 56 years old Clinical indication: Abdominal tenderness; Additional info: Elevated transaminases TECHNIQUE: Imaging protocol: Computed tomography of the abdomen and pelvis without contrast. Radiation optimization: All CT scans at this facility use at least one of these dose optimization techniques: automated exposure control; mA and/or kV adjustment per patient size (includes targeted exams where dose is matched to clinical indication); or iterative reconstruction. COMPARISON: ABDPELW/O CT ABD PELVIS W/O CONTRAST 12/31/2016 1:02 AM FINDINGS: Liver: Normal. No mass. Gallbladder and bile ducts: Normal. No calcified stones. No ductal dilation. Pancreas: Normal. No ductal dilation. Spleen: Normal. No splenomegaly. Adrenal glands: Normal. No mass. Kidneys and ureters: 3 cm right renal cyst . This has increased in size compared with the previous study. Stomach and bowel: Moderate amount of retained fecal material throughout the colon. Appendix: No evidence of appendicitis. Intraperitoneal space: Unremarkable. No free air. No significant fluid collection. Vasculature: Unremarkable. No abdominal aortic aneurysm. Lymph nodes: Unremarkable. No enlarged lymph nodes. Urinary bladder: Moderate bladder distension. Reproductive: Unremarkable as visualized. Bones/joints: See Soft tissues finding. Soft tissues: Asymmetry with mild enlargement of the left obturator internus muscle bundle in comparison to the right. Findings may reflect trauma. No distinct mass is identified given limitations without contrast administration. Next lumbar spondylosis. Findings stable. Other findings: Study limited without contrast administration. IMPRESSION: 1. Moderate bladder distension. 2. Findings suggesting constipation. 3. Asymmetric enlargement of the left obturator internus muscle bundle in comparison to the right. Findings may be posttraumatic. Clinically correlate. 4. Please see above report for discussion of additional nonacute findings. COMMENTS: Consistent with the [employer]'s Incidental Findings Committee white paper (J Am [employer] Radiol 2018): Any incidental renal lesion less than 1 cm or classified as too small to characterize, or any incidental cystic renal lesion characterized as simple-appearing, is likely benign. No follow-up imaging is recommended for these lesions per consensus recommendations based on imaging criteria.
--- NOTE | 2022-04-03 17:07 | PC.NURSE ---
pt to radiology via stretcher
--- NOTE | 2022-04-03 17:11 | PC.NURSE ---
Martha Ventura from [facility] called to check on patient; advised her that we were still waiting on lab results and he was having a CT scan done at this time and we would call her back once we knew more. She has no other questions at this time
[2022-04-03 17:40] LABS: Lymphocytes % 27 % (10-50); Monocytes % 14 % (2-9); Neutrophils % 59 % (42-76); RBC Morphology Normal; Total Cells Counted 100
[2022-04-03 17:41] LABS: Creatine Kinase 19503 U/L (55-170); Platelet Estimate Slight Decrease
--- NOTE | 2022-04-03 17:47 | PC.NURSE ---
PT UNABLE TO VOID FOR UA, CATH SPECIMEN COLLECTED, PT TOLERATED WELL. UA SENT TO LAB
[2022-04-03 18:01] LABS: Microscopic, Urine URINE MICROSCOPIC (MICROSCOPIC)
[2022-04-03 18:06] LABS: Appearance,Urine CLEAR (Clear); Blood, Urine Negative (Negative); Color,Urine YELLOW (Yellow); Glucose,Urine (UA) Negative (Negative); Ketones,Urine TRACE (Negative); Leukocyte Esterase,Urine Negative (Negative); Nitrate,Urine Negative (Negative); PH,Urine 5.5 (5.0-8.5); Protein,Urine Negative (Negative); Specific Gravity, Urine 1.025 (1.005-1.030)
--- NOTE | 2022-04-03 18:11 | PC.NURSE ---
Pageantonina Byrd for AKHIL MD
[2022-04-03 18:27] LABS: Bilirubin,Urine 1+ (Negative)
[2022-04-03 18:32] LABS: Bacteria,Urine 2+ /lpf; RBC,Urine Occasional #/hpf (0-3); Squamous Epithelial Cell,Urine Occasional #/hpf (0-5); WBC,Urine Occasional #/hpf (0-3)
--- NOTE | 2022-04-03 18:40 | PC.NURSE ---
1839 SPENSER NOTIFIED THAT PT WILL BE ADMITTED
--- NOTE | 2022-04-03 18:43 | PC.NURSE ---
Spoke with INDIA Scruggs regarding patient admission
--- NOTE | 2022-04-03 18:48 | PC.NURSE ---
Nelson called and assigned room 205 to patient.
[2022-04-03 18:49] LABS: Influenza A, PCR Not Detected (NotDetected); Influenza B, PCR Not Detected (NotDetected)
[2022-04-03 19:15] LABS: Coronavirus 19, PCR Detected (NotDetected)
--- NOTE | 2022-04-03 19:29 | PC.NURSE ---
Spoke with Faye Hemphill at [facility] regarding patient admission. Also notified Kanchan that patient did test positive for Covid so that she could take proper precautions for the other patients.
--- NOTE | 2022-04-03 19:37 | PC.NURSE ---
House notified that pt is covid +, 2nd floor nurse notified as well
--- NOTE | 2022-04-03 20:44 | PC.NURSE ---
PT ARRIVED TO FLOOR VIA STRETCHER FROM ED W/STAFF @ 2042
[2022-04-03 21:15] LABS: POC Glucose,Bedside 83 (70-110)
[2022-04-04] VITALS (10 sets, daily range): BP systolic 90–160; BP diastolic 49–99; PULSE 53–86; RESP 18–22; TEMP 37–39.6; O2SAT 86–99; BMI 31.4
--- NOTE | 2022-04-04 05:37 | PC.NURSE ---
Pt has been lethargic since arriving to floor. Able to wake up to voice to answer yes/no questions and take PO medicine. Pt body is very stiff and pt has a lot of trouble moving/bending extremities. Pt has been q2 turned, helped to take sips of water. Carlos in place draining clear yellow urine. 1300 ml of urine drained from carlos since arriving to floor. Seizure pads and bed alarm on for pt safety.
--- NOTE | 2022-04-04 07:49 | HMH.PHAVTE ---
[facility] Pharmacy VTE Monitoring - Patient Demographics Admission date: 04/03/22 Report Date: 04/04/22 Time: 07:49 Allergies/Adverse Reactions: Patient Allergies No Known Allergies Allergy (Verified 04/01/21 15:12) Height: 1.83 m Weight: 105.282 kg Patient Problems: Current Active Problems Renal insufficiency (Acute) Rhabdomyolysis (Acute) Altered mental status (Acute) Elevated AST (SGOT) (Acute) - VTE Risk Labs: VTE Related Lab Results Hgb 12.0 g/dL (14.1-18.0) L 04/03/22 15:50 Hct 38.1 % (42.0-52.0) L 04/03/22 15:50 Plt Count 105 K/mm3 (142-424) L 04/03/22 15:50 BUN 43 mg/dl (9-20) H 04/03/22 15:50 Creatinine 2.30 mg/dl (0.66-1.25) H 04/03/22 15:50 Estimated Creat Clear 54 mL/min (50-200) 04/03/22 15:50 - Prophylaxis VTE Prophylaxis Ordered?: Yes Types of VTE Prophylaxis: TEDS Knee High, Pharmacological Location of Applied Device: Bilateral Lower Extremeties Pharmacologic Type: Enoxaparin
--- NOTE | 2022-04-04 07:59 | SW/DCPLANNER ---
Addendum entered by Kallie Saeed 04/09/22 11:38: [facility]/ [facility] stated that she can accept this patient today. This patient will discharge to [facility] today. I will update patient, his sister and [facility]. Addendum entered by Kallie Saeed 04/09/22 10:06: Patient information has also been faxed to E[facility]. Addendum entered by Kallie [place] 04/09/22 09:23: I spoke with patient's sister (Celestina) regarding placement. Celestina is agreeable to placement at [facility] due to being COVID positive. Patient information has been faxed and I will follow up with Cait at [facility] today. Addendum entered by Kallie Saeed 04/06/22 10:36: Patient may need short term placement once medically stable for discharge prior to returning to [facility]. Martha [facility]/ [facility] stated that patient's father (listed on chart) has and his sister is now involved with his care. I am currently waiting for Martha to send me sister's contact information. I have faxed patient information to [facility] in case if placement is needed at time of discharge. I will continue to follow up with: patient, family, [facility], Chsae Villarreal and MD. Original Note: This patient currently resides at [facility]. I will fax updated patient information and continue to follow up with Surya until patient is medically stable for discharge.
--- NOTE | 2022-04-04 08:02 | HMH.PHAINT ---
MEDICATION RECONCILIATION COMPLETED ON PATIENT USING MAR FROM [facility]. -LENIN MATA, SHERID
[2022-04-04 08:41] LABS: Basophils % 0.6 % (0.1-2.0); Eosinophils # 0.1 K/mm3 (0.0-0.4); Eosinophils % 1.3 % (0.1-12.0); Hematocrit 38.4 % (42.0-52.0); Lymphocytes # 1.6 K/mm3 (0.7-4.5); Lymphocytes % 37.4 % (10-50); Mean Corpuscular HGB Conc 31.4 g/dL (31.8-35.4); Mean Corpuscular Hemoglobin 28.4 pg (27.0-31.2); Mean Corpuscular Volume 90.6 fl (80-94); Mean Platelet Volume 8.8 fl (7.4-10.4); Monocytes # 0.7 K/mm3 (0.1-1.0); Monocytes % 17.2 % (1.7-9.3); Neutrophils # 1.8 K/mm3 (1.8-7.8); Neutrophils % 43.6 % (37.0-80.0); Platelet Count 77 K/mm3 (142-424); Red Blood Count 4.23 M/mm3 (4.60-6.20); Red Cell Distribution Width 14.9 % (11.5-17.5); White Blood Count 4.2 K/mm3 (4.8-10.8)
[2022-04-04 08:56] LABS: Chloride 109 mmol/L (98-107); Potassium 4.3 mmoL/L (3.5-5.1); Sodium 143 mmol/L (136-145)
[2022-04-04 08:59] LABS: Blood Urea Nitrogen 34 mg/dl (9-20); Creatinine Clearance Estimated 80 mL/min (50-200); Estimated Glomerular Filt Rate 48 ml/min (>60); GFR (African American) 58 ML/MIN (>60)
[2022-04-04 09:00] LABS: Anion Gap 10.3 mEq/L (5-15); Calcium 8.8 mg/dl (8.4-10.2); Carbon Dioxide 28 mmol/L (22.0-30.0); Glucose 86 mg/dl (74-100)
--- NOTE | 2022-04-04 09:14 | HMH.PULMCON ---
*Admission Date: 04/03/22 *Reason for consult:: COVID-19 pneumonia *History of present illness: Mr. Coe is a 56-year-old male [facility] resident presented to the ER with lethargy weakness and altered mentation found to be having positive for COVID-19 pneumonia, significant elevated creatinine kinase at 19,005 3 continue rhabdomyolysis and was eventually admitted for further management. No significant smoking history, patient comes in diffuse muscle ache for the last 1 week gradually getting worse worsens with exertion or walking. He also complains of exertional dyspnea, denies any productive phlegm. [facility] History Medical History: Reports:: Diabetes Mellitus Type 2 Denies:: Cancer, Diabetes Mellitus Type 1, Internal Pacemaker, MRSA *Have you ever received a pneumonia vaccine?: No *Have you received a flu vaccine this season?: Yes Other Surgeries: No: Pacemaker Amputation: No - *Social History Smoking Status: Unknown if ever smoked Alcohol Intake: never Substance Use Type: denies use *Occupational Status:: disabled Housing: assisted living facility Household Members: other *Travel in the last 8 weeks: None Family Hx:: Unable to obtain ROS - Cons Reports anorexia, Reports body ache(s), Reports chills, Reports fatigue, Reports fever(s) - Eyes Denies change in vision, Denies discharge - ENT Denies bleeding gums, Denies difficulty swallowing - Card Reports shortness of breath, Reports shortness of breath with activity - Resp Respiratory: Reports chest congestion, Reports cough, Reports dyspnea, Reports dyspnea on exertion, Denies excessive phlegm production, Denies pain with cough - GI Gastrointestingal: Denies: abdominal pain, dysphagia - [place] Musculoskeletal: Reports back pain, Reports muscle weakness - Psych Denies thoughts of hurting/killing others, Denies thoughts of hurting/killing yourself Meds Home Medications Medication Instructions Recorded Confirmed Type Pioglitazone HCl 30 mg PO DAILY 04/18/18 04/03/22 History Lisinopril/Hydrochlorothiazide 1 each PO DAILY 06/30/18 04/04/22 History [Lisinopril-Hctz 10-12.5 mg Tab*] Acetaminophen [Non-Aspirin Extra 1,000 mg PO Q6HP PRN 10/05/18 04/03/22 History Strength] Loperamide HCl [Loperamide] 2 mg PO Q3HP PRN 10/05/18 04/03/22 History metoclopramide HCl 10 mg tablet 10 mg PO BIDP PRN tab 01/23/19 04/04/22 History Insulin Glargine,Hum.rec.anlog 20 unit SQ HS 04/01/21 04/04/22 History [Taiaglousmane Burnspen U-100] Linagliptin [Tradjenta 5mg tablet] 5 mg PO DAILY 04/01/21 04/03/22 History Perphenazine 8 mg PO TID 04/01/21 04/03/22 History gabapentin 800 mg tablet 800 mg PO TID #90 tab 12/29/21 04/03/22 Rx Benztropine Mesylate [Cogentin 1mg 1.5 mg PO BID 04/04/22 04/04/22 History tablet] Divalproex Sodium [Depakote 500 mg PO TID 04/04/22 04/04/22 History (Delayed Release) 500mg Tab] LORazepam [Lorazepam 1mg Tablet] 1 mg PO Q8HP PRN 04/04/22 04/04/22 History Loratadine [Claritin 10mg 10 mg PO DAILY 04/04/22 04/04/22 History Tablet] Pantoprazole Sodium [Protonix 40mg 40 mg PO DAILY 04/04/22 04/04/22 History tablet] Polyvinyl Alcohol [Artificial 2 drp OP Q2HP PRN 04/04/22 04/04/22 History Tears] Promethazine HCl [Phenergan 25mg 25 mg PO Q6HP PRN 04/04/22 04/04/22 History tab] haloperidoL [Haloperidol] 10 mg PO TID 04/04/22 04/04/22 History polyethylene glycoL 3350 [Miralax 17 gm PO DAILY 04/04/22 04/04/22 History 17gm Packet] risperiDONE [Risperidone] 4 mg PO BID 04/04/22 04/04/22 History Allergies Allergy/AdvReac Type Severity Reaction Status Date / Time No Known Allergies Allergy Verified 04/01/21 15:12 Exam - Constitutional Constitutional:: Absent: no acute distress, comfortable - HENMT Exam HENMT: Present: normocephalic, atraumatic - Eye Exam Eyes:: Present: normal appearance both eyes and related structures, eyelids normal, normal conjunctiva - Neck Exam Neck:: Present: normal visual
--- NOTE | 2022-04-04 09:19 | HMH.HP ---
*Admission Date: 04/03/22 *Chief complaint: Weakness *History of present illness: 56-year-old male patient presented to the [facility] emergency department via EMS from [facility] for altered mental status and weakness. Patient reports he has felt weak for several days and has just not been feeling well. He denies fever/chills/body aches, nausea/vomiting/diarrhea, abdomen pain, and denies contact with any illness. Emergency department white blood cell count 3.9, hemoglobin 12 and hematocrit 38 BUN/creatinine 43/2.3, CK 19,503, AST 574, ALT [address] was negative Chest x-ray revealed mild left base atelectasis COVID-19 positive test He received 1 L of normal saline and then a maintenance rate [facility] History I have reviewed the patient's past medical history: Yes Medical History: Reports:: Diabetes Mellitus Type 2 Denies:: Cancer, Diabetes Mellitus Type 1, Internal Pacemaker, MRSA *Have you ever received a pneumonia vaccine?: No *Have you received a flu vaccine this season?: Yes Other Surgeries: No: Pacemaker Amputation: No - *Social History Smoking Status: Unknown if ever smoked Alcohol Intake: never Substance Use Type: denies use *Occupational Status:: disabled Housing: assisted living facility Household Members: other *Travel in the last 8 weeks: None Family Hx:: Unable to obtain Review of Systems - Review of Systems Review of systems:: pertinent systems reviewed and negative unless documented below - Constitutional Reports fatigue - Eyes Denies change in vision, Denies double vision - *Cardiovascular Denies chest pain, Denies chest pain at rest, Denies shortness of breath - *Respiratory Denies chest congestion, Denies shortness of breath - *Gastrointestinal Denies abdominal pain, Denies change in stools, Denies nausea - *Musculoskeletal Denies muscle weakness, Denies numbness - Integumentary/Breasts Denies change in skin color, Denies new lesions - *Neurologic Reports behavioral changes, Reports confusion, Denies headache(s) - Psychiatric Reports behavioral changes, Denies hearing things others do not hear, Denies irritability - Endocrine Denies cold intolerance, Denies increased thirst - Hematologic/Lymphatic Denies easy bleeding, Denies easy bruising - Allergic/Immunologic Denies GI upset with certain foods, Denies tongue swelling Meds Home Medications Medication Instructions Recorded Confirmed Type Pioglitazone HCl 30 mg PO DAILY 04/18/18 04/03/22 History Lisinopril/Hydrochlorothiazide 1 each PO DAILY 06/30/18 04/04/22 History [Lisinopril-Hctz 10-12.5 mg Tab*] Acetaminophen [Non-Aspirin Extra 1,000 mg PO Q6HP PRN 10/05/18 04/03/22 History Strength] Loperamide HCl [Loperamide] 2 mg PO Q3HP PRN 10/05/18 04/03/22 History metoclopramide HCl 10 mg tablet 10 mg PO BIDP PRN tab 01/23/19 04/04/22 History Insulin Glargine,Hum.rec.anlog 20 unit SQ HS 04/01/21 04/04/22 History [Tr[facility] Delacruz U-100] Linagliptin [Tradjenta 5mg tablet] 5 mg PO DAILY 04/01/21 04/03/22 History Perphenazine 8 mg PO TID 04/01/21 04/03/22 History gabapentin 800 mg tablet 800 mg PO TID #90 tab 12/29/21 04/03/22 Rx Benztropine Mesylate [Cogentin 1mg 1.5 mg PO BID 04/04/22 04/04/22 History tablet] Divalproex Sodium [Depakote 500 mg PO TID 04/04/22 04/04/22 History (Delayed Release) 500mg Tab] LORazepam [Lorazepam 1mg Tablet] 1 mg PO Q8HP PRN 04/04/22 04/04/22 History Loratadine [Claritin 10mg 10 mg PO DAILY 04/04/22 04/04/22 History Tablet] Pantoprazole Sodium [Protonix 40mg 40 mg PO DAILY 04/04/22 04/04/22 History tablet] Polyvinyl Alcohol [Artificial 2 drp OP Q2HP PRN 04/04/22 04/04/22 History Tears] Promethazine HCl [Phenergan 25mg 25 mg PO Q6HP PRN 04/04/22 04/04/22 History tab] haloperidoL [Haloperidol] 10 mg PO TID 04/04/22 04/04/22 History polyethylene glycoL 3350 [Miralax 17 gm PO DAILY 04/04/22 04/04/22 History 17gm Packet
[2022-04-04 10:38] LABS: Alanine Aminotransferase 148 U/L (12-78); Aspartate Amino Transferase 434 U/L (17-59); Bilirubin,Unconjugated 0.2 mg/dL (0.0-1.1)
[2022-04-04 10:39] LABS: Albumin Level 3.4 g/dl (3.5-5.0); Alkaline Phosphatase 67 U/L (38-126); Bilirubin,Direct 0.4 mg/dl (0.0-0.4); Bilirubin,Indirect 0.3 mg/dL (0.0-0.9); Bilirubin,Total 0.7 mg/dl (0.2-1.3); Total Protein,Serum 6.2 g/dl (6.3-8.2)
[2022-04-04 12:01] LABS: Lactate Dehydrogenase 832 U/L (313-618)
[2022-04-04 12:06] LABS: C-Reactive Protein 32.1 mg/L (0-4)
[2022-04-04 12:36] LABS: D-Dimer 2.64 ug/mL (0.0-0.5)
[2022-04-04 12:37] LABS: Creatine Kinase 13722 U/L (55-170)
--- NOTE | 2022-04-04 15:14 | PC.NURSE ---
Spoke to Josemanuel Chairez, antibiotics not started at this time despite patient's fever. Ok to d/c carlos catheter
--- NOTE | 2022-04-04 15:21 | PC.NURSE ---
rounded on patient. assisted patient with cleaning up an incontinence episode and then walking to bathroom. patient was shuffling. required assistance by at least one. some confusion noted. no concerns or questions. assisted back to bed. bed alarm replaced bedside table within reach
--- NOTE | 2022-04-04 16:20 | XR_ITS ---
PROCEDURE INFORMATION: Exam: XR Chest Exam date and time: 04/04/2022 4:32 PM Age: 56 years old Clinical indication: Fever TECHNIQUE: Imaging protocol: Radiologic exam of the chest. Views: 1 view. COMPARISON: CR XR CHEST PORTABLE 04/03/2022 4:02 PM FINDINGS: Lungs: Patchy interstitial opacity with peribronchial thickening left lung base. Pleural spaces: Unremarkable. No pleural effusion. No pneumothorax. Heart/Mediastinum: Unremarkable. No cardiomegaly. Bones/joints: Unremarkable. IMPRESSION: Findings compatible with bronchitis. Possible superimposed interstitial pneumonitis, left lung base.
--- NOTE | 2022-04-04 16:24 | PC.NURSE ---
Called Josemanuel Chairez after patient's fever still rising despite being given both acetaminophen and ibuprofen. Patient alert but still confused. Josemanuel Chairez notified of patient's blood pressure but no medications restarted. orders for blood cultures, chest x-ray, lactic acid, and levaquin iv obtained. Josemanuel Chairez notified that patient is much more alert and awake for most of the day whereas he was lethargic upon admission
[2022-04-04 17:37] LABS: Lactic Acid 1.4 mmol/L (0.7-2.1)
[2022-04-05] VITALS (8 sets, daily range): BP systolic 124–149; BP diastolic 60–80; PULSE 62–102; RESP 16–18; TEMP 37–38.2; O2SAT 95–100; BMI 31.4
--- NOTE | 2022-04-05 05:53 | PC.NURSE ---
pt has rested well t/o the night. he is alert to person around by voice or light pain, has been turned or turned himself every 2 hours or more this shift. pt did well swallowing medications. FSBS was 72 this morning. gave pt orange juice and ensure. call light within reach, no needs at this time.
[2022-04-05 07:19] LABS: Basophils # 0.1 K/mm3 (0-0.2); Basophils % 0.6 % (0.1-2.0); Eosinophils # 0.2 K/mm3 (0.0-0.4); Eosinophils % 2.1 % (0.1-12.0); Hematocrit 39.5 % (42.0-52.0); Hemoglobin 12.2 g/dL (14.1-18.0); Lymphocytes # 1.6 K/mm3 (0.7-4.5); Lymphocytes % 20.4 % (10-50); Mean Corpuscular Volume 90.3 fl (80-94); Mean Platelet Volume 9.9 fl (7.4-10.4); Monocytes # 0.6 K/mm3 (0.1-1.0); Monocytes % 8.2 % (1.7-9.3); Neutrophils # 5.4 K/mm3 (1.8-7.8); Neutrophils % 68.7 % (37.0-80.0); Platelet Count 91 K/mm3 (142-424); Red Blood Count 4.37 M/mm3 (4.60-6.20); White Blood Count 7.8 K/mm3 (4.8-10.8)
[2022-04-05 07:54] LABS: Chloride 112 mmol/L (98-107); Potassium 4.4 mmoL/L (3.5-5.1); Sodium 139 mmol/L (136-145)
[2022-04-05 07:57] LABS: Anion Gap 10.4 mEq/L (5-15); Blood Urea Nitrogen 27 mg/dl (9-20); Calcium 8.3 mg/dl (8.4-10.2); Carbon Dioxide 21 mmol/L (22.0-30.0); Creatinine Clearance Estimated 86 mL/min (50-200); Estimated Glomerular Filt Rate 52 ml/min (>60); GFR (African American) 63 ML/MIN (>60); Glucose 109 mg/dl (74-100)
--- NOTE | 2022-04-05 08:00 | PC.NURSE ---
Spoke with Mihaela and informed him about positive anerobic blood culture.
[2022-04-05 08:47] LABS: Creatine Kinase 8050 U/L (55-170)
--- NOTE | 2022-04-05 09:21 | HMH.PULMPN ---
Internal Medicine - PN: Subj *Date: 04/05/22 *Time: 10:35 Interval history: No acute respiratory vents overnight. Patient admits improving respiratory symptoms and muscle aches. Denies any new complaints. Denies any cough or productive phlegm. Exam - Constitutional Constitutional:: Present: no acute distress, comfortable - HENMT Exam HENMT: Present: normocephalic, atraumatic - Eye Exam Eyes:: Present: normal appearance both eyes and related structures, eyelids normal, normal conjunctiva - Neck Exam Neck:: Present: normal visual inspection, thyroid normal - Respiratory Exam Respiratory:: Present: able to speak in complete sentences, no respiratory distress. Absent: wheezing - Cardiovascular Exam Cardiac:: Present: S1, S2. Absent: chest pain - GI Exam GI:: Present: soft, no tenderness - Skin Exam Skin: Present: warm, no rash - Neurological Exam Neurological: Present: alert, awake - Extremities Exam Extremities: Present: no cyanosis, no clubbing, no edema Assessment and Plan (1) Renal insufficiency Status: Acute Category: Medical Code(s): N28.9 - Disorder of kidney and ureter, unspecified (2) Schizophrenia Status: Acute Category: Medical Code(s): F20.9 - Schizophrenia, unspecified (3) Rhabdomyolysis Status: Acute Qualifiers: Rhabdomyolysis type: non-traumatic Qualified Code(s): M62.82 - Rhabdomyolysis Category: Medical Code(s): M62.82 - Rhabdomyolysis (4) Altered mental status Status: Acute Qualifiers: Altered mental status type: disorientation Qualified Code(s): R41.0 - Disorientation, unspecified Category: Medical Code(s): R41.82 - Altered mental status, unspecified - Assessment and plan all Dx Assessment and Plan for all problems:: #COVID-19 pneumonia: #Rhabdomyolysis: 56-year-old male no significant smoking history. No prior respiratory complaints. Admits received vaccine for COVID-19 pneumonia unclear of the dates. half-way resident. Presented with weakness found to be having sleep with elevated CK rhabdomyolysis and was also tested positive for COVID-19 pneumonia. Denies any known sick contacts. Patient does not appear to be in any respiratory distress. On room air saturating 94% and above. Auscultation clear with no wheezing or crackles. Significantly elevated creatinine and is along with AST ALT and alk phos. Denies any known family history of sickle cell disease Though, chest x-ray is concerning for left lower lobe airspace disease, CT abdomen which include lower lung santos did not show any evidence of airspace disease/dense consolidation. Showed minimal groundglass opacities. Interval update: Creatinine relatively stable from yesterday, improved from admission. CK improving, now at 8050. D-dimer elevated at 2.64. CRP at 32.1 and LDH at 832. Stable respiratory status. Continue to remain on room air. Chest clear to auscultate. Plan: -Given no acute respiratory symptoms, will hold off on initiating specific treatment for COVID-19 pneumonia at this point of time -Continue IV fluids at 125/h with strict I&O's with a urine output goal of 125/h #Thank you for involving pulmonary in this patient care.
--- NOTE | 2022-04-05 09:37 | PC.NURSE ---
Patient was cleaned up twice within 2 hours. Melina Olivares and I assisted in cleaning him up. Kassy Medel SRNA
--- NOTE | 2022-04-05 09:54 | PC.NURSE ---
courtesy tech bethany: Two BM's noted patient has been cleaned up x2 assist.
--- NOTE | 2022-04-05 09:58 | HMH.ACPN2 ---
Internal Medicine - PN: Subj *Date: 04/05/22 *Time: 12:35 Interval history: 56-year-old male patient sitting up in bed resting quietly with eyes open, he denies any shortness of breath during the night. Yesterday his temp was 102, chest x-ray was ordered, lactate, and levofloxacin was started. 1 blood culture is showing preliminary gram-positive bacilli, white blood cell count still normal. Exam Vital signs and Labs for Last 24 Hours: Temp Pulse Resp BP Pulse Ox 100.7 F H 102 H 18 140/80 97 04/05/22 08:00 04/05/22 08:00 04/05/22 08:00 04/05/22 08:00 04/05/22 08:00 Laboratory Results - last 24 hr 04/04/22 08:33: Total Bilirubin 0.7, Direct Bilirubin 0.4, Conjugated Bilirubin 0.0, Indirect Bilirubin 0.3, Unconjugated Bilirubin 0.2, AST 434 H*, ALT 148 H, Alkaline Phosphatase 67, Total Protein 6.2 L, Albumin 3.4 L D 04/04/22 08:33: Total Creatine Kinase 94778 H*, C-Reactive Protein 32.1 H 04/04/22 08:33: Lactate Dehydrogenase 832 H 04/04/22 12:15: D-Dimer 2.64 H 04/04/22 17:15: Lactate 1.4 04/05/22 07:05: WBC 7.8 D, RBC 4.37 L, Hgb 12.2 L, Hct 39.5 L, MCV 90.3, MCH 28.0, MCHC 31.0 L, RDW 15.0, Plt Count 91 L, MPV 9.9, Neut % (Auto) 68.7, Lymph % (Auto) 20.4, [place] % (Auto) 8.2, Eos % (Auto) 2.1, Baso % (Auto) 0.6, Neut # (Auto) 5.4, Lymph # (Auto) 1.6, [place] # (Auto) 0.6, Eos # (Auto) 0.2, Baso # (Auto) 0.1 04/05/22 07:05: Sodium 139, Potassium 4.4, Chloride 112 H, Carbon Dioxide 21 L, Anion Gap 10.4, BUN 27 H, Creatinine 1.40 H, Estimated Creat Clear 86, Estimated GFR 52 L, Est GFR ( Amer) 63, Glucose 109 H D, Calcium 8.3 L 04/05/22 07:05: Total Creatine Kinase 8050 H* D I & O for Last 24 hours: Intake & Output 04/02/22 04/03/22 04/04/22 04/05/22 23:59 23:59 23:59 23:59 Intake Total 1000 / 1000 1794 / 1794 1006 / 1006 Output Total 600 / 800 1100 / 1100 500 / 500 Balance 400 / 200 694 / 694 506 / 506 Weight 232 lb 1.6 oz 232 lb 1.713 oz 232 lb 8 oz Microbiology Reports for the Last 24 Hours: Microbiology 04/04/22 17:15 Blood Blood Culture - Preliminary 04/03/22 17:40 Urine,Clean Catch Urine Culture - Preliminary NO GROWTH AFTER 24 HOURS - Constitutional no acute distress - *Routine HEENT Exam Head: Present: normocephalic Eye: Present: EOMI ENT: Present: mucous membranes moist - *Routine Neck Exam Present: trachea midline. Absent: tracheal deviation - *Routine Respiratory Exam Present: decreased breath sounds. Absent: accessory muscle use - *Routine Cardiovascular Exam Present: RRR - *Routine Abdominal Exam Present: soft, normoactive bowel sounds, tenderness - *Routine Extremities Exam Present: full ROM, pulses intact. Absent: cyanosis, clubbing - *Routine Skin Exam Present: intact, dry. Absent: cyanosis, erythema - *Routine Neurological Exam Present: alert - Routine Psychiatric Exam Present: unable to assess Assessment and Plan (1) Renal insufficiency Status: Acute Category: Medical Code(s): N28.9 - Disorder of kidney and ureter, unspecified (2) Schizophrenia Status: Acute Category: Medical Code(s): F20.9 - Schizophrenia, unspecified (3) Rhabdomyolysis Status: Acute Qualifiers: Rhabdomyolysis type: non-traumatic Qualified Code(s): M62.82 - Rhabdomyolysis Category: Medical Code(s): M62.82 - Rhabdomyolysis (4) Altered mental status Status: Acute Qualifiers: Altered mental status type: disorientation Qualified Code(s): R41.0 - Disorientation, unspecified Category: Medical Code(s): R41.82 - Altered mental status, unspecified - Assessment and plan all Dx Assessment and Plan for all problems:: Rounded with Dr. Ramirez, all orders per Dr. Ramirez: 1. Pulmonology following 2. Awaiting blood cultures
--- NOTE | 2022-04-05 13:43 | PC.NURSE ---
courtesy tech note: Patient refuses to eat soup. Patient requested chicken noodle soup but then refused to eat it as well. Patient did eat a few bites of mashed potato's and drank some water.
--- NOTE | 2022-04-05 14:06 | DIET.NUTRFU ---
Interviewed patient after lunch, meal intake has been poor. He was noted to have loose stools today. Has no teeth but claims he can tolerate regular consistency just does not feel like eating. Agreed to tray strawberry glucerna for extra calories and protein. Labs reviewed, renal and liver labs are elevated. insulin and IVF are in place. Will continue to monitor po intake
--- NOTE | 2022-04-05 15:38 | PC.NURSE ---
Pt is A/O to self. He has had multiple episodes of diarrhea. A stool sample was sent down. He has complained of lower abdomen pain, I checked placement of FC and he has great output.
[2022-04-05 17:45] LABS: Adenovirus F 40/41, stool Not Detected (NotDetected); Astrovirus Not Detected (NotDetected); Campylobacter Not Detected (NotDetected); Cryptosporidium Not Detected (NotDetected); Cyclospora Cayetanesis Not Detected (NotDetected); Entamoeba histolytica Not Detected (NotDetected); Enteroaggregative E coli Not Detected (NotDetected); Enteropathogenic E coli Not Detected (NotDetected); Enterotoxigenic E coli Not Detected (NotDetected); Giardia lamblia Not Detected (NotDetected); Norovirus Not Detected (NotDetected); Plesimonas Shigalloides, PCR Not Detected (NotDetected); Salmonella, PCR Not Detected (NotDetected); Shiga-like toxin E coli Not Detected (NotDetected); Shigella Enterovasive E coli Not Detected (NotDetected); Vibrio Cholerae Not Detected (NotDetected); Vibrio, PCR Not Detected (NotDetected); Yersinia Entercolitica, PCR Not Detected (NotDetected)
[2022-04-05 17:46] LABS: Rotavirus A Not Detected (NotDetected); Sapovirus Not Detected (NotDetected)
[2022-04-05 20:05] LABS: Clostridium Difficile A/B, PCR Detected (NotDetected)
[2022-04-06 04:00] VITALS: BP 139/76; PULSE 76; RESP 17; TEMP 37.2; O2SAT 94
[2022-04-06 05:00] VITALS: BMI 31.8
--- NOTE | 2022-04-06 05:20 | PC.NURSE ---
Pt alert to person. Pt has slept majority of shift. No c/o voiced to staff. Pt febrile at beginning of shift with temp of 100.7. PRN tylenol administered per OCT. Tran cath in place draining clear yellow urine. Call light within reach. Bed alarm and seizure pads in place for pt safety.
[2022-04-06 06:53] LABS: Basophils % 0.5 % (0.1-2.0); Eosinophils # 0.2 K/mm3 (0.0-0.4); Hematocrit 38.1 % (42.0-52.0); Lymphocytes % 15.4 % (10-50); Mean Corpuscular HGB Conc 31.6 g/dL (31.8-35.4); Mean Corpuscular Hemoglobin 28.2 pg (27.0-31.2); Mean Corpuscular Volume 89.2 fl (80-94); Mean Platelet Volume 10.1 fl (7.4-10.4); Monocytes # 0.4 K/mm3 (0.1-1.0); Monocytes % 5.7 % (1.7-9.3); Neutrophils # 4.7 K/mm3 (1.8-7.8); Neutrophils % 75.5 % (37.0-80.0); Platelet Count 90 K/mm3 (142-424); Red Blood Count 4.27 M/mm3 (4.60-6.20); Red Cell Distribution Width 15.1 % (11.5-17.5); White Blood Count 6.2 K/mm3 (4.8-10.8)
[2022-04-06 07:07] LABS: Chloride 115 mmol/L (98-107); Sodium 141 mmol/L (136-145)
[2022-04-06 07:08] LABS: Potassium 4.3 mmoL/L (3.5-5.1)
[2022-04-06 07:10] LABS: Blood Urea Nitrogen 19 mg/dl (9-20); Creatinine Clearance Estimated 101 mL/min (50-200); Estimated Glomerular Filt Rate 62 ml/min (>60); GFR (African American) 75 ML/MIN (>60)
[2022-04-06 07:11] LABS: Anion Gap 9.3 mEq/L (5-15); Calcium 8.2 mg/dl (8.4-10.2); Carbon Dioxide 21 mmol/L (22.0-30.0); Glucose 94 mg/dl (74-100)
[2022-04-06 07:24] LABS: Creatine Kinase 3687 U/L (55-170)
[2022-04-06 08:00] VITALS: BP 142/72; PULSE 72; RESP 16; TEMP 37.6; O2SAT 97
--- NOTE | 2022-04-06 08:50 | HMH.ACPN2 ---
Internal Medicine - PN: Subj *Date: 04/06/22 *Time: 13:00 Interval history: 56-year-old male patient resting in bed quietly with eyes open, she denies any respiratory distress during the night. Oxygen saturation 97% on room air. He does report abdominal fullness/cramping and having loose bowel movements. Diarrhea panel resulted C. difficile, we will start vancomycin p.o. and continue Flagyl IV for colitis. Exam Vital signs and Labs for Last 24 Hours: Temp Pulse Resp BP Pulse Ox 99.0 F 76 17 139/76 94 L 04/06/22 04:00 04/06/22 04:00 04/06/22 04:00 04/06/22 04:00 04/06/22 04:00 Laboratory Results - last 24 hr 04/05/22 17:35: Stl Aeromonas (PCR) Not detected, Stl C. cayetanensis PCR Not detected, Stool Rotavirus (PCR) Not detected, Stl Adenov F 40/41 PCR Not detected, Stool Astrovirus (PCR) Not detected, Stool Campylobacter PCR Not detected, Stl C.difficile Tox PCR Detected A, Stool Cryptosporidium PCR Not detected, Stl E.coli Shiga Tox PCR Not detected, Stool E coli O157 PCR Not detected, Stl Enterotoxigenic E PCR Not detected, Stool EPEC (PCR) Not detected, Stool EAEC (PCR) Not detected, Stl E. histolytica PCR Not detected, Stool Giardia Lamblia PCR Not detected, Stool Salmonella PCR Not detected, Stool Sapovirus (PCR) Not detected, Stl P. shigelloides PCR Not detected, Stl Shigella/EIEC PCR Not detected, St Y.enterocolitica PCR Not detected, Stool Vibrio (PCR) Not detected, Stl Vibrio cholerae PCR Not detected, Stl Norovirus GI/GII PCR Not detected 04/06/22 06:39: WBC 6.2, RBC 4.27 L, Hgb 12.0 L, Hct 38.1 L, MCV 89.2, MCH 28.2, MCHC 31.6 L, RDW 15.1, Plt Count 90 L, MPV 10.1, Neut % (Auto) 75.5, Lymph % (Auto) 15.4, [place] % (Auto) 5.7, Eos % (Auto) 3.0, Baso % (Auto) 0.5, Neut # (Auto) 4.7, Lymph # (Auto) 1.0, [place] # (Auto) 0.4, Eos # (Auto) 0.2, Baso # (Auto) 0.0 04/06/22 06:39: Sodium 141, Potassium 4.3, Chloride 115 H, Carbon Dioxide 21 L, Anion Gap 9.3, BUN 19 D, Creatinine 1.20, Estimated Creat Clear 101, Estimated GFR 62, Est GFR ( Amer) 75, Glucose 94, Calcium 8.2 L 04/06/22 06:39: Total Creatine Kinase 3687 H* D I & O for Last 24 hours: Intake & Output 04/03/22 04/04/22 04/05/22 04/06/22 23:59 23:59 23:59 23:59 Intake Total 1000 / 1000 1794 / 1794 2739 / 2739 1518 / 1518 Output Total 600 / 800 1100 / 1100 1500 / 1500 700 / 700 Balance 400 / 200 694 / 694 1239 / 1239 818 / 818 Weight 232 lb 1.6 oz 232 lb 1.713 oz 232 lb 7.992 oz 235 lb 1 oz Microbiology Reports for the Last 24 Hours: Microbiology 04/03/22 17:40 Urine,Clean Catch Urine Culture - Final NO GROWTH AFTER 48 HOURS 04/04/22 17:15 Blood Blood Culture - Preliminary - Constitutional no acute distress - *Routine HEENT Exam Head: Present: normocephalic Eye: Present: EOMI ENT: Present: mucous membranes moist - *Routine Neck Exam Present: trachea midline. Absent: tracheal deviation - *Routine Respiratory Exam Present: CTA bilaterally. Absent: accessory muscle use - *Routine Cardiovascular Exam Present: RRR - *Routine Abdominal Exam Present: soft, normoactive bowel sounds, tenderness - *Routine Extremities Exam Present: full ROM, pulses intact. Absent: cyanosis, clubbing, edema, calf tenderness - *Routine Skin Exam Present: intact, dry. Absent: cyanosis, erythema - *Routine Neurological Exam Present: alert, altered mental status - Routine Psychiatric Exam Present: unable to assess Assessment and Plan (1) Renal insufficiency Status: Acute Category: Medical Code(s): N28.9 - Disorder of kidney and ureter, unspecified (2) Schizophrenia Status: Acute Category: Medical Code(s): F20.9 - Schizophrenia, unspecified (3) Rhabdomyolysis Status: Acute Qualifiers: Rhabdomyolysis type: non-traumatic Qualified Code(s): M62.82 - Rhabdomyolysis Category: Medical Code(s): M62.82 - Rhabdomyolysis (4) Altered mental status Status: Acute Qualifiers:
--- NOTE | 2022-04-06 09:18 | P.PN_ITS ---
Internal Medicine - PN: Subj *Date: 04/06/22 *Time: 09:18 Assessment and Plan (1) Renal insufficiency Status: Acute Category: Medical Code(s): N28.9 - Disorder of kidney and ureter, unspecified (2) Schizophrenia Status: Acute Category: Medical Code(s): F20.9 - Schizophrenia, unspecified (3) Rhabdomyolysis Status: Acute Qualifiers: Rhabdomyolysis type: non-traumatic Qualified Code(s): M62.82 - Rhabdomyolysis Category: Medical Code(s): M62.82 - Rhabdomyolysis (4) Altered mental status Status: Acute Qualifiers: Altered mental status type: disorientation Qualified Code(s): R41.0 - Disorientation, unspecified Category: Medical Code(s): R41.82 - Altered mental status, unspecified - Assessment and plan all Dx Assessment and Plan for all problems:: #COVID-19 pneumonia: #Rhabdomyolysis: 56-year-old male no significant smoking history. No prior respiratory complaints. Admits received vaccine for COVID-19 pneumonia unclear of the champ es. halfway resident. Presented with weakness found to be having sleep with elevated CK rhabdomyolysis and was also tested positive for COVID-19 pneumonia. Denies any known sick contacts. Patient does not appear to be in any respiratory distress. On room air saturating 94% and above. Auscultation clear with no wheezing or crackles. Significantly elevated creatinine and is along with AST ALT and alk phos. Denies any known family history of sickle cell disease Though, chest x-ray is concerning for left lower lobe airspace disease, CT abdomen which include lower lung santos did not show any evidence of airspace disease/dense consolidation. Showed minimal groundglass opacities. Interval update: Continue to remain on room air. Platelets are stable. Creatinine continue to improve along with CK. Plan: -Given no acute respiratory symptoms, will hold off on initiating specific treatment for COVID-19 pneumonia at this point of time -Continue IV fluids at 125/h with strict I&O's with a urine output goal of 125/h #Thank you for involving pulmonary in this patient care. We will follow the patient in pulmonary clinic in 6 to 8 weeks
--- NOTE | 2022-04-06 09:30 | HMH.OTEV ---
OT Inpatient Evaluation Rehab OT IP Evaluation Start: 04/06/22 08:48 Freq: ONCE Status: Complete Protocol: Document 04/06/22 09:22 BALDO (Rec: 04/06/22 09:29 KAYLAHSHAKIR [id number]) Rehab OT IP Assessment Subjective History 56-year-old male patient presented to the [facility] emergency department via EMS from [facility] for altered mental status and weakness. Patient reports he has felt weak for several days and has just not been feeling well. He denies fever/chills /body aches, nausea/vomiting/ diarrhea, abdomen pain, and denies contact with any illness. Emergency department white blood cell count 3.9, hemoglobin 12 and hematocrit 38 BUN/creatinine 43/2.3, CK 19, 503, AST 574, ALT [address] was negative Chest x-ray revealed mild left base atelectasis COVID-19 positive test He received 1 L of normal saline and then a maintenance rate [facility] History I have reviewed the patient's past medical history: Yes Medical History: Reports:: Diabetes Mellitus Type 2 Patient lives in local home at [facility]. Patient was an independent ambulator prior to hospitalization. Patient required limited/minimal assistance for possible bathing. Subjective I can try to get up but my stomach hurts. Instructed Patient on proper hand and foot placement to complete supine->sit @ EOB requiring Min A. Patient demonstrated good dynamic sitting balance while at EOB with no LOB noted. Instructed
--- NOTE | 2022-04-06 09:58 | DIET.NUTRFU ---
Addendum entered by Lala Suazo RD, LD 04/06/22 13:00: Nurse reports he likes his Apple juice and BS have been on low side. He really did not drink the glucerna, he might like the boost clear instead. Will notify kitchen Original Note: Patient continues to have loose bowel movement secondary to C-diff. This may also be impacting his appetite. He has only been consuming bites here and there. Interviewed him yesterday and he agreed to try glucerna with his meals for extra calorie/protein if consumed. He continues on IVF to help his hydration status and his labs are WNL for hydration and his Cr Kinase is showing improvement. Also started additional vitamins d/t COVID dx. Will continue to monitor meal intake
--- NOTE | 2022-04-06 10:31 | HMH.PTEV ---
Physical Therapy Evaluation Rehab PT IP Evaluation Start: 04/06/22 08:48 Freq: ONCE Status: Active Protocol: Document 04/06/22 10:20 MICHAEL (Rec: 04/06/22 10:31 MICHAEL [id number]) Subjective/History History History Patient is a 56-year-old male patient presented to the [facility] 06/16 emergency department via EMS from [facility] for altered mental status and weakness. Patient was previously independent with ambulation requiring no AD. Patient most recently diagnosed with COVID-19, but reports no SOA. Subjective Subjective I just feel really weak and my stomach kind of hurts. Rehab PT IP Eval Objective Appearance Patient Behavior Cooperative,Confused Patient Orientation Person,Birthday Difficulty following instructions mild Speech Pattern Clear,Appropriate Ambulation Patient Able to Ambulate No Balance Ability to Arise Able, uses arms to help Sitting Balance Steady, safe Standing Balance Unsteady Dynamic Sitting Balance Ability Normal Transfers Bed Transfer Ability Minimal x 1 (25% assist) Sit to Stand Bed Transfer Ability Minimal x 2 (25% assist) Pain Shoulder Pain Intensity 4 Lower Abdomen Pain Intensity 5 ROM All Extremities PT ROM Status WFL MMT All Extremities PT MMT WFL Rehab PT IP prob,goals,plan Problems Date of Evaluation: 04/06/22 PT IP Problems Bed Mobility,Transfers,Gait, Balance,Self care,Safety Rehab Potential Rehab Potential Good Equipment Needs Assistive Devices None / NA Plan PT Intervention Plan Bed Mobility,Transfers,Gait, Balance,Self care,Safety, Therapeutic Exercise PT Plan Frequency BID Duration LOS Discharge Goals Bed Transfer Ability Supervision/Stand by Sit to Stand Chair Transfer Ability Supervision/Stand by Ambulation Assistive Device None Ambulation Distance (feet) 20 Discharge Plan PT Discharge Plan Patient to discharge back to [facility] when deemed medically stable by . G -code Required No Eval Complexi
[2022-04-06 12:00] VITALS: BP 143/76; PULSE 76; RESP 18; TEMP 38.4; O2SAT 97
--- NOTE | 2022-04-06 15:08 | PC.NURSE ---
Pt is A/O to person. He has only had three bowel movements at this time. He has not eaten a whole lot today. He states that he is not really hungry. He has tolerated his medications all day. He denies N/V or dizziness. He is getting IV fluids, IV abx, and PO ABX. He had a slight temp I gave him PO tylenol. Q4 hours later had a greater temp, and gave him PO Ibuprofen. Then Q hr his rectal temp was 99.4. I placed a wet wash cloth on his head, and left a thin blanket to cover him. His FC is in place and is working.
[2022-04-06 15:15] VITALS: BP 150/74; PULSE 68; RESP 16; TEMP 37.4; O2SAT 97
[2022-04-06 17:03] LABS: POC Glucose,Bedside 65 (70-110)
[2022-04-06 19:56] VITALS: BP 125/75; PULSE 75; RESP 16; TEMP 37.3; O2SAT 93
[2022-04-06 21:14] LABS: POC Glucose,Bedside 96 (70-110)
[2022-04-06 23:58] VITALS: BP 133/65; PULSE 69; RESP 16; TEMP 37.1; O2SAT 96
[2022-04-07] VITALS (7 sets, daily range): BP systolic 122–152; BP diastolic 69–98; PULSE 71–90; RESP 16–18; TEMP 37.3–39.3; O2SAT 93–98; BMI 25.6
[2022-04-07 05:52] LABS: POC Glucose,Bedside 90 (70-110)
--- NOTE | 2022-04-07 05:59 | PC.NURSE ---
PT IS ALERT TO PERSON. PT HAS RESTED INTERMITTENTLY THIS SHIFT. LUNG SOUNDS ARE DIMINISHED BILATERALLY WITH FINE CRACKLES BUT IS TOLERATING ROOM AIR WELL. PT HAS HAD THREE LOOSE STOOLS THIS SHIFT. AMBULATED TO THE BR WITH ASSIST X1 AND DID WELL. LEE CATHETER REMAINS IN PLACE AND IS DRAINING DARK YELLOW URINE IN ADEQUATE AMOUNTS. PT HAS NOT C/O ANY SHORTNESS OF BREATH OR DISCOMFORT. CALL [facility] WITHIN REACH. BED ALARM IN PLACE FOR PT SAFETY. VSS.
[2022-04-07 07:21] LABS: Chloride 113 mmol/L (98-107); Potassium 3.5 mmoL/L (3.5-5.1); Sodium 142 mmol/L (136-145)
[2022-04-07 07:24] LABS: Anion Gap 9.5 mEq/L (5-15); Blood Urea Nitrogen 19 mg/dl (9-20); Calcium 8.1 mg/dl (8.4-10.2); Carbon Dioxide 23 mmol/L (22.0-30.0); Creatine Kinase 1389 U/L (55-170); Creatinine Clearance Estimated 75 mL/min (50-200); Estimated Glomerular Filt Rate 57 ml/min (>60); GFR (African American) 69 ML/MIN (>60); Glucose 99 mg/dl (74-100)
[2022-04-07 07:33] LABS: Basophils % 0.6 % (0.1-2.0); Eosinophils # 0.1 K/mm3 (0.0-0.4); Hematocrit 36.6 % (42.0-52.0); Hemoglobin 11.3 g/dL (14.1-18.0); Lymphocytes # 0.6 K/mm3 (0.7-4.5); Lymphocytes % 14.1 % (10-50); Mean Corpuscular HGB Conc 30.8 g/dL (31.8-35.4); Mean Corpuscular Hemoglobin 27.4 pg (27.0-31.2); Mean Platelet Volume 9.4 fl (7.4-10.4); Monocytes # 0.4 K/mm3 (0.1-1.0); Monocytes % 9.5 % (1.7-9.3); Neutrophils # 3.1 K/mm3 (1.8-7.8); Neutrophils % 73.9 % (37.0-80.0); Platelet Count 83 K/mm3 (142-424); Red Blood Count 4.11 M/mm3 (4.60-6.20); White Blood Count 4.2 K/mm3 (4.8-10.8)
--- NOTE | 2022-04-07 08:36 | HMH.ACPN2 ---
Internal Medicine - PN: Subj *Date: 04/07/22 *Time: 08:37 Interval history: doing better - labs reviewed -pt with sl fever - no new c/o Exam Vital signs and Labs for Last 24 Hours: Temp Pulse Resp BP Pulse Ox 100.4 F H 71 16 122/88 97 04/07/22 08:00 04/07/22 08:00 04/07/22 08:00 04/07/22 08:00 04/07/22 08:00 Laboratory Results - last 24 hr 04/06/22 16:54: POC Glucose 65 L 04/06/22 21:04: POC Glucose 96 04/07/22 05:44: POC Glucose 90 04/07/22 06:36: WBC 4.2 L D, RBC 4.11 L, Hgb 11.3 L, Hct 36.6 L, MCV 89.0, MCH 27.4, MCHC 30.8 L, RDW 15.0, Plt Count 83 L, MPV 9.4, Neut % (Auto) 73.9, Lymph % (Auto) 14.1, [place] % (Auto) 9.5 H, Eos % (Auto) 2.0, Baso % (Auto) 0.6, Neut # (Auto) 3.1, Lymph # (Auto) 0.6 L, [place] # (Auto) 0.4, Eos # (Auto) 0.1, Baso # (Auto) 0.0 04/07/22 06:36: Sodium 142, Potassium 3.5, Chloride 113 H, Carbon Dioxide 23, Anion Gap 9.5, BUN 19, Creatinine 1.30 H, Estimated Creat Clear 75, Estimated GFR 57 L, Est GFR ( Amer) 69, Glucose 99, Calcium 8.1 L, Total Creatine Kinase 1389 H* D I & O for Last 24 hours: Intake & Output 04/04/22 04/05/22 04/06/22 04/07/22 11:59 11:59 11:59 11:59 Intake Total 1951 / 1951 1848 / 1848 3491 / 3491 2806 / 2806 Output Total 1300 / 1300 1100 / 1700 2000 / 2000 1100 / 1100 Balance 652 / 652 748 / 148 1491 / 1491 1706 / 1706 Weight 232 lb 1.713 oz 232 lb 7.992 oz 235 lb 1 oz 189 lb 7 oz Microbiology Reports for the Last 24 Hours: Microbiology 04/04/22 17:15 Blood Blood Culture - Preliminary NO GROWTH AFTER 48 HOURS - Constitutional no acute distress - *Routine HEENT Exam Head: Present: normocephalic Eye: Present: EOMI, PERRL ENT: Present: mucous membranes dry - *Routine Neck Exam Absent: JVD - *Routine Respiratory Exam Present: decreased breath sounds - *Routine Cardiovascular Exam Present: RRR - *Routine Abdominal Exam Present: soft - *Routine Extremities Exam Absent: calf tenderness - *Routine Skin Exam Present: intact - *Routine Neurological Exam Present: alert, CN II-XII intact - Routine Psychiatric Exam Present: cooperative Assessment and Plan (1) Renal insufficiency Status: Acute Category: Medical Code(s): N28.9 - Disorder of kidney and ureter, unspecified (2) Schizophrenia Status: Acute Category: Medical Code(s): F20.9 - Schizophrenia, unspecified (3) Rhabdomyolysis Status: Acute Qualifiers: Rhabdomyolysis type: non-traumatic Qualified Code(s): M62.82 - Rhabdomyolysis Category: Medical Code(s): M62.82 - Rhabdomyolysis (4) Altered mental status Status: Acute Qualifiers: Altered mental status type: disorientation Qualified Code(s): R41.0 - Disorientation, unspecified Category: Medical Code(s): R41.82 - Altered mental status, unspecified (5) C. difficile colitis Status: Acute Category: Medical Code(s): A04.72 - Enterocolitis due to Clostridium difficile, not specified as recurrent (6) Pneumonia due to COVID-19 virus Status: Acute Category: Medical Code(s): U07.1 - COVID-19; J12.82 - Pneumonia due to coronavirus disease 2019 (7) FRANCISCO (acute kidney injury) Status: Acute Category: Medical Code(s): N17.9 - Acute kidney failure, unspecified (8) SIRS (systemic inflammatory response syndrome) Status: Acute Category: Medical Code(s): R65.10 - Systemic inflammatory response syndrome (SIRS) of non-infectious origin without acute organ dysfunction
--- NOTE | 2022-04-07 09:41 | P.PN_ITS ---
Internal Medicine - PN: Subj *Date: 04/07/22 *Time: 09:41 Exam Vital signs and Labs for Last 24 Hours: Temp Pulse Resp BP Pulse Ox 100.4 F H 71 16 122/88 97 04/07/22 08:00 04/07/22 08:00 04/07/22 08:00 04/07/22 08:00 04/07/22 08:00 Laboratory Results - last 24 hr 04/06/22 16:54: POC Glucose 65 L 04/06/22 21:04: POC Glucose 96 04/07/22 05:44: POC Glucose 90 04/07/22 06:36: WBC 4.2 L D, RBC 4.11 L, Hgb 11.3 L, Hct 36.6 L, MCV 89.0, MCH 27.4, MCHC 30.8 L, RDW 15.0, Plt Count 83 L, MPV 9.4, Neut % (Auto) 73.9, Lymph % (Auto) 14.1, [place] % (Auto) 9.5 H, Eos % (Auto) 2.0, Baso % (Auto) 0.6, Neut # (Auto) 3.1, Lymph # (Auto) 0.6 L, [place] # (Auto) 0.4, Eos # (Auto) 0.1, Baso # (Auto) 0.0 04/07/22 06:36: Sodium 142, Potassium 3.5, Chloride 113 H, Carbon Dioxide 23, Anion Gap 9.5, BUN 19, Creatinine 1.30 H, Estimated Creat Clear 75, Estimated GFR 57 L, Est GFR ( Amer) 69, Glucose 99, Calcium 8.1 L, Total Creatine Kinase 1389 H* D I & O for Last 24 hours: Intake & Output 04/04/22 04/05/22 04/06/22 04/07/22 23:59 23:59 23:59 23:59 Intake Total 1794 / 1794 2739 / 2739 3234 / 3234 1330 / 1330 Output Total 1100 / 1100 1500 / 1500 1500 / 1500 800 / 800 Balance 694 / 694 1239 / 1239 1734 / 1734 530 / 530 Weight 105.282 kg 105.46 kg 106.623 kg 85.927 kg Microbiology Reports for the Last 24 Hours: Microbiology 08/10/22 17:15 Blood Blood Culture - Preliminary NO GROWTH AFTER 48 HOURS Assessment and Plan (1) Renal insufficiency Status: Acute Category: Medical Code(s): N28.9 - Disorder of kidney and ureter, unspecified (2) Schizophrenia Status: Acute Category: Medical Code(s): F20.9 - Schizophrenia, unspecified (3) Rhabdomyolysis Status: Acute Qualifiers: Rhabdomyolysis type: non-traumatic Qualified Code(s): M62.82 - Rhabdomyolysis Category: Medical Code(s): M62.82 - Rhabdomyolysis (4) Altered mental status Status: Acute Qualifiers: Altered mental status type: disorientation Qualified Code(s): R41.0 - Disorientation, unspecified Category: Medical Code(s): R41.82 - Altered mental status, unspecified (5) C. difficile colitis Status: Acute Category: Medical Code(s): A04.72 - Enterocolitis due to Clostridium difficile, not specified as recurrent (6) Pneumonia due to COVID-19 virus Status: Acute Category: Medical Code(s): U07.1 - COVID-19; J12.82 - Pneumonia due to coronavirus disease 2019 (7) FRANCISCO (acute kidney injury) Status: Acute Category: Medical Code(s): N17.9 - Acute kidney failure, unspecified (8) SIRS (systemic inflammatory response syndrome) Status: Acute Category: Medical Code(s): R65.10 - Systemic inflammatory response syndrome (SIRS) of non-infectious origin without acute organ dysfunction The patient's infection will respond to the chosen ABx?: Yes Is the patient receiving the right drug, dose, and route?: Yes Could a more targeted ABx be ordered?: No
[2022-04-07 11:28] LABS: POC Glucose,Bedside 92 (70-110)
--- NOTE | 2022-04-07 11:38 | PC.NURSE ---
pt got up with x1 assist to bathroom. he is more clear this afternoon than he was this morning. he spoke with his sister on the phone. He was able to provide more of his history as well as tell me where he was. his saturation has been fine on RA. has a cough but denies any sputum production
[2022-04-07 17:30] LABS: POC Glucose,Bedside 110 (70-110)
[2022-04-07 21:57] LABS: POC Glucose,Bedside 82 (70-110)
--- NOTE | 2022-04-07 22:34 | PC.NURSE ---
PT REFUSED PO VANCOMYCIN WITH EVENING MED PASS.
[2022-04-08] VITALS (7 sets, daily range): BP systolic 115–143; BP diastolic 56–80; PULSE 64–78; RESP 16–18; TEMP 37.3–38.5; O2SAT 95–100; BMI 28.6
--- NOTE | 2022-04-08 04:37 | PC.NURSE ---
PT HAS RESTED BETTER THIS SHIFT. PT FEBRILE MOST OF SHIFT AND MEDICATED PER MAR FOR FEVER. LUNG SOUNDS REMAIN DIMINISHED WITH FINE CRACKLES THROUGHOUT BILATERAL LUNG MDCONALD. REMAINS ON ROOM AIR AND IS TOLERATING WELL. TURNING IN BED INDEPENDENTLY. SEIZURE PADS AND BED ALARM IN PLACE FOR PT SAFETY. AT EVENING MED PASS PATIENT STATED THAT HE WAS, TIRED OF TAKING ALL THESE PILLS AND HE, JUST WANTS TO BE LEFT ALONE . CARE CLUSTERED APPROPRIATELY FOR PATIENT TO REST. LEE REMAINS IN PLACE DRAINING ADEQUATE AMOUNTS OF DARK YELLOW URINE. FEWER STOOLS THIS SHIFT. VSS.
[2022-04-08 05:53] LABS: POC Glucose,Bedside 90 (70-110)
[2022-04-08 07:22] LABS: Basophils % 0.7 % (0.1-2.0); Eosinophils # 0.1 K/mm3 (0.0-0.4); Eosinophils % 1.3 % (0.1-12.0); Hematocrit 33.8 % (42.0-52.0); Hemoglobin 10.9 g/dL (14.1-18.0); Lymphocytes # 1.5 K/mm3 (0.7-4.5); Mean Corpuscular HGB Conc 32.2 g/dL (31.8-35.4); Mean Corpuscular Hemoglobin 28.2 pg (27.0-31.2); Mean Corpuscular Volume 87.7 fl (80-94); Mean Platelet Volume 9.2 fl (7.4-10.4); Monocytes # 0.4 K/mm3 (0.1-1.0); Neutrophils # 2.6 K/mm3 (1.8-7.8); Platelet Count 100 K/mm3 (142-424); Red Blood Count 3.85 M/mm3 (4.60-6.20); Red Cell Distribution Width 15.4 % (11.5-17.5); White Blood Count 4.6 K/mm3 (4.8-10.8)
[2022-04-08 07:28] LABS: Chloride 117 mmol/L (98-107); Potassium 3.6 mmoL/L (3.5-5.1); Sodium 143 mmol/L (136-145)
[2022-04-08 07:31] LABS: Anion Gap 7.6 mEq/L (5-15); Blood Urea Nitrogen 16 mg/dl (9-20); Calcium 7.9 mg/dl (8.4-10.2); Carbon Dioxide 22 mmol/L (22.0-30.0); Creatine Kinase 1360 U/L (55-170); Creatinine Clearance Estimated 99 mL/min (50-200); Estimated Glomerular Filt Rate 69 ml/min (>60); GFR (African American) 83 ML/MIN (>60); Glucose 98 mg/dl (74-100)
--- NOTE | 2022-04-08 09:44 | HMH.ACPN2 ---
Internal Medicine - PN: Subj *Date: 04/09/22 *Time: 06:29 Interval history: doing ok - stable labs - less diarrhea reported Exam Vital signs and Labs for Last 24 Hours: Temp Pulse Resp BP Pulse Ox 99.6 F 66 16 115/56 L 95 04/08/22 08:00 04/08/22 08:00 04/08/22 08:00 04/08/22 08:00 04/08/22 08:00 Laboratory Results - last 24 hr 04/07/22 11:21: POC Glucose 92 04/07/22 17:14: POC Glucose 110 04/07/22 21:43: POC Glucose 82 04/08/22 05:46: POC Glucose 90 04/08/22 06:48: WBC 4.6 L, RBC 3.85 L, Hgb 10.9 L, Hct 33.8 L, MCV 87.7, MCH 28.2, MCHC 32.2, RDW 15.4, Plt Count 100 L, MPV 9.2, Neut % (Auto) 57.0, Lymph % (Auto) 32.0, [place] % (Auto) 9.0, Eos % (Auto) 1.3, Baso % (Auto) 0.7, Neut # (Auto) 2.6, Lymph # (Auto) 1.5, [place] # (Auto) 0.4, Eos # (Auto) 0.1, Baso # (Auto) 0.0 04/08/22 06:48: Sodium 143, Potassium 3.6, Chloride 117 H, Carbon Dioxide 22, Anion Gap 7.6, BUN 16, Creatinine 1.10, Estimated Creat Clear 99, Estimated GFR 69, Est GFR ( Amer) 83 D, Glucose 98, Calcium 7.9 L, Total Creatine Kinase 1360 H* I & O for Last 24 hours: Intake & Output 04/05/22 04/06/22 04/07/22 04/08/22 11:59 11:59 11:59 11:59 Intake Total 1848 / 1848 3491 / 3491 2806 / 2806 360 / 360 Output Total 1100 / 1700 2000 / 2000 1100 / 1100 1300 / 1300 Balance 748 / 148 1491 / 1491 1706 / 1706 -940 / -940 Weight 232 lb 7.992 oz 235 lb 1 oz 189 lb 7 oz 211 lb 6 oz - Constitutional no acute distress - *Routine HEENT Exam Head: Present: normocephalic Eye: Present: EOMI, PERRL ENT: Present: mucous membranes dry - *Routine Neck Exam Absent: JVD - *Routine Respiratory Exam Present: decreased breath sounds - *Routine Cardiovascular Exam Present: RRR, murmur - *Routine Abdominal Exam Present: soft - *Routine Extremities Exam Absent: calf tenderness - *Routine Skin Exam Present: intact - *Routine Neurological Exam Present: alert, CN II-XII intact - Routine Psychiatric Exam Present: cooperative Assessment and Plan (1) Renal insufficiency Status: Acute Category: Medical Code(s): N28.9 - Disorder of kidney and ureter, unspecified (2) Schizophrenia Status: Acute Category: Medical Code(s): F20.9 - Schizophrenia, unspecified (3) Rhabdomyolysis Status: Acute Qualifiers: Rhabdomyolysis type: non-traumatic Qualified Code(s): M62.82 - Rhabdomyolysis Category: Medical Code(s): M62.82 - Rhabdomyolysis (4) Altered mental status Status: Acute Qualifiers: Altered mental status type: disorientation Qualified Code(s): R41.0 - Disorientation, unspecified Category: Medical Code(s): R41.82 - Altered mental status, unspecified (5) C. difficile colitis Status: Acute Category: Medical Code(s): A04.72 - Enterocolitis due to Clostridium difficile, not specified as recurrent (6) Pneumonia due to COVID-19 virus Status: Acute Category: Medical Code(s): U07.1 - COVID-19; J12.82 - Pneumonia due to coronavirus disease 2019 (7) FRANCISCO (acute kidney injury) Status: Acute Category: Medical Code(s): N17.9 - Acute kidney failure, unspecified (8) SIRS (systemic inflammatory response syndrome) Status: Acute Category: Medical Code(s): R65.10 - Systemic inflammatory response syndrome (SIRS) of non-infectious origin without acute organ dysfunction
--- NOTE | 2022-04-08 15:39 | PC.NURSE ---
RN aware of elevated temp
[2022-04-09 04:00] VITALS: BP 137/70; PULSE 67; RESP 16; TEMP 36.8; O2SAT 98
--- NOTE | 2022-04-09 04:06 | PC.NURSE ---
Addendum entered by Kanchan Henry RN 04/09/22 04:17: 20 G IV in RFA patent infusing NS at 125 Original Note: pt has rested well t/o the night. he has had a non-productive cough this shift with diminished lung sounds. remains on RA. he has been alert to person, birthday, and situation. he is arousable to voice. no c/o pain, or nausea this shift. carlos catheter in place draining dark yellow/tea colored urine. 20 G IV call light within reach, bed alarm on and functioning, seizure pads in place, no needs at this time.
[2022-04-09 04:37] VITALS: BMI 29.3
[2022-04-09 06:47] LABS: Basophils % 0.8 % (0.1-2.0); Eosinophils # 0.2 K/mm3 (0.0-0.4); Hematocrit 35.8 % (42.0-52.0); Hemoglobin 11.1 g/dL (14.1-18.0); Lymphocytes # 1.1 K/mm3 (0.7-4.5); Lymphocytes % 22.7 % (10-50); Mean Corpuscular HGB Conc 30.9 g/dL (31.8-35.4); Mean Corpuscular Hemoglobin 27.5 pg (27.0-31.2); Mean Corpuscular Volume 88.9 fl (80-94); Mean Platelet Volume 9.6 fl (7.4-10.4); Monocytes # 0.3 K/mm3 (0.1-1.0); Monocytes % 6.1 % (1.7-9.3); Neutrophils # 3.2 K/mm3 (1.8-7.8); Neutrophils % 66.4 % (37.0-80.0); Platelet Count 109 K/mm3 (142-424); Red Blood Count 4.03 M/mm3 (4.60-6.20); Red Cell Distribution Width 15.6 % (11.5-17.5); White Blood Count 4.8 K/mm3 (4.8-10.8)
--- NOTE | 2022-04-09 06:48 | PC.NURSE ---
riddhi done this am
[2022-04-09 07:05] LABS: Anion Gap 7.4 mEq/L (5-15); Blood Urea Nitrogen 16 mg/dl (9-20); Calcium 7.8 mg/dl (8.4-10.2); Carbon Dioxide 18 mmol/L (22.0-30.0); Chloride 119 mmol/L (98-107); Creatine Kinase 896 U/L (55-170); Creatinine Clearance Estimated 112 mL/min (50-200); Estimated Glomerular Filt Rate 77 ml/min (>60); GFR (African American) 93 ML/MIN (>60); Glucose 102 mg/dl (74-100); Potassium 4.4 mmoL/L (3.5-5.1); Sodium 140 mmol/L (136-145)
[2022-04-09 07:36] VITALS: BP 130/74; PULSE 64; RESP 18; TEMP 36.7; O2SAT 97
--- NOTE | 2022-04-09 09:16 | P.PN_ITS ---
Internal Medicine - PN: Subj *Date: 04/09/22 *Time: 09:16 Exam Vital signs and Labs for Last 24 Hours: Temp Pulse Resp BP Pulse Ox 98.1 F 64 18 130/74 97 04/09/22 07:36 04/09/22 07:36 04/09/22 07:36 04/09/22 07:36 04/09/22 07:36 Laboratory Results - last 24 hr 04/09/22 06:39: WBC 4.8, RBC 4.03 L, Hgb 11.1 L, Hct 35.8 L, MCV 88.9, MCH 27.5, MCHC 30.9 L, RDW 15.6, Plt Count 109 L, MPV 9.6, Neut % (Auto) 66.4, Lymph % (Auto) 22.7, [place] % (Auto) 6.1, Eos % (Auto) 4.0, Baso % (Auto) 0.8, Neut # (Auto) 3.2, Lymph # (Auto) 1.1, [place] # (Auto) 0.3, Eos # (Auto) 0.2, Baso # (Auto) 0.0 04/09/22 06:39: Sodium 140, Potassium 4.4 D, Chloride 119 H, Carbon Dioxide 18 L, Anion Gap 7.4, BUN 16, Creatinine 1.00, Estimated Creat Clear 112, Estimated GFR 77, Est GFR ( Amer) 93, Glucose 102 H, Calcium 7.8 L, Total Creatine Kinase 896 H* D I & O for Last 24 hours: Intake & Output 04/06/22 04/07/22 04/08/22 04/09/22 23:59 23:59 23:59 23:59 Intake Total 3234 / 3234 1690 / 1690 510 / 510 4778 / 4778 Output Total 1500 / 1500 1600 / 1600 1600 / 1600 300 / 300 Balance 1734 / 1734 90 / 90 -1090 / -1090 4478 / 4478 Weight 106.623 kg 85.927 kg 95.878 kg 98.231 kg Assessment and Plan (1) Renal insufficiency Status: Acute Category: Medical Code(s): N28.9 - Disorder of kidney and ureter, unspecified (2) Schizophrenia Status: Acute Category: Medical Code(s): F20.9 - Schizophrenia, unspecified (3) Rhabdomyolysis Status: Acute Qualifiers: Rhabdomyolysis type: non-traumatic Qualified Code(s): M62.82 - Rhabdomyolysis Category: Medical Code(s): M62.82 - Rhabdomyolysis (4) Altered mental status Status: Acute Qualifiers: Altered mental status type: disorientation Qualified Code(s): R41.0 - Disorientation, unspecified Category: Medical Code(s): R41.82 - Altered mental status, unspecified (5) C. difficile colitis Status: Acute Category: Medical Code(s): A04.72 - Enterocolitis due to Clostridium difficile, not specified as recurrent (6) Pneumonia due to COVID-19 virus Status: Acute Category: Medical Code(s): U07.1 - COVID-19; J12.82 - Pneumonia due to coronavirus disease 2019 (7) FRANCISCO (acute kidney injury) Status: Acute Category: Medical Code(s): N17.9 - Acute kidney failure, unspecified (8) SIRS (systemic inflammatory response syndrome) Status: Acute Category: Medical Code(s): R65.10 - Systemic inflammatory response syndrome (SIRS) of non-infectious origin without acute organ dysfunction The patient's infection will respond to the chosen ABx?: Yes Is the patient receiving the right drug, dose, and route?: Yes Could a more targeted ABx be ordered?: No (C. DIFF IN STOOL)
--- NOTE | 2022-04-09 09:44 | P.PN_ITS ---
Internal Medicine - PN: Subj *Date: 04/09/22 *Time: 11:33 Interval history: looks better but still with sl fever and dec po intake labs improved Exam Vital signs and Labs for Last 24 Hours: Temp Pulse Resp BP Pulse Ox 98.1 F 64 18 130/74 97 04/09/22 07:36 04/09/22 07:36 04/09/22 07:36 04/09/22 07:36 04/09/22 07:36 Laboratory Results - last 24 hr 04/09/22 06:39: WBC 4.8, RBC 4.03 L, Hgb 11.1 L, Hct 35.8 L, MCV 88.9, MCH 27.5, MCHC 30.9 L, RDW 15.6, Plt Count 109 L, MPV 9.6, Neut % (Auto) 66.4, Lymph % (Auto) 22.7, [place] % (Auto) 6.1, Eos % (Auto) 4.0, Baso % (Auto) 0.8, Neut # (Auto) 3.2, Lymph # (Auto) 1.1, [place] # (Auto) 0.3, Eos # (Auto) 0.2, Baso # (Auto) 0.0 04/09/22 06:39: Sodium 140, Potassium 4.4 D, Chloride 119 H, Carbon Dioxide 18 L, Anion Gap 7.4, BUN 16, Creatinine 1.00, Estimated Creat Clear 112, Estimated GFR 77, Est GFR ( Amer) 93, Glucose 102 H, Calcium 7.8 L, Total Creatine Kinase 896 H* D I & O for Last 24 hours: Intake & Output 04/06/22 04/07/22 04/08/22 04/09/22 11:59 11:59 11:59 11:59 Intake Total 3491 / 3491 2806 / 2806 480 / 480 5168 / 5168 Output Total 1999 / 1999 1100 / 1100 1300 / 1300 1400 / 1400 Balance 1491 / 1491 1706 / 1706 -820 / -820 3768 / 3768 Weight 235 lb 1 oz 189 lb 7 oz 211 lb 6 oz 216 lb 9 oz - Constitutional no acute distress - *Routine HEENT Exam Head: Present: normocephalic Eye: Present: EOMI, PERRL ENT: Present: mucous membranes moist - *Routine Neck Exam Absent: JVD - *Routine Respiratory Exam Present: CTA bilaterally - *Routine Cardiovascular Exam Present: RRR, murmur - *Routine Abdominal Exam Present: soft - *Routine Extremities Exam Absent: calf tenderness - *Routine Skin Exam Present: intact - *Routine Neurological Exam Present: alert, CN II-XII intact - Routine Psychiatric Exam Present: cooperative Assessment and Plan (1) Renal insufficiency Status: Acute Category: Medical Code(s): N28.9 - Disorder of kidney and ureter, unspecified (2) Schizophrenia Status: Acute Category: Medical Code(s): F20.9 - Schizophrenia, unspecified (3) Rhabdomyolysis Status: Acute Qualifiers: Rhabdomyolysis type: non-traumatic Qualified Code(s): M62.82 - Rhabdomyolysis Category: Medical Code(s): M62.82 - Rhabdomyolysis (4) Altered mental status Status: Acute Qualifiers: Altered mental status type: disorientation Qualified Code(s): R41.0 - Disorientation, unspecified Category: Medical Code(s): R41.82 - Altered mental status, unspecified (5) C. difficile colitis Status: Acute Category: Medical Code(s): A04.72 - Enterocolitis due to Clostridium difficile, not specified as recurrent (6) Pneumonia due to COVID-19 virus Status: Acute Category: Medical Code(s): U07.1 - COVID-19; J12.82 - Pneumonia due to coronavirus disease 2019 (7) FRANCISCO (acute kidney injury) Status: Acute Category: Medical Code(s): N17.9 - Acute kidney failure, unspecified (8) SIRS (systemic inflammatory response syndrome) Status: Acute Category: Medical Code(s): R65.10 - Systemic inflammatory response syndrome (SIRS) of non-infectious origin without acute organ dysfunction
--- NOTE | 2022-04-09 10:32 | HMH.PULMPN ---
Internal Medicine - PN: Subj *Date: 04/09/22 *Time: 10:32 Interval history: No acute respiratory once over the weekend. Patient continues to remain on room air. Exam - Constitutional Constitutional:: Present: no acute distress, comfortable - HENMT Exam HENMT: Present: normocephalic, atraumatic - Eye Exam Eyes:: Present: normal appearance both eyes and related structures, eyelids normal - Neck Exam Neck:: Present: normal visual inspection, thyroid normal - Respiratory Exam Respiratory:: Present: able to speak in complete sentences, no respiratory distress. Absent: wheezing - Cardiovascular Exam Cardiac:: Present: S1, S2. Absent: chest pain - GI Exam GI:: Present: soft, no hepatosplenomegaly - Skin Exam Skin: Present: warm, no rash - Neurological Exam Neurological: Present: alert, awake - Extremities Exam Extremities: Present: no cyanosis, no clubbing, no edema - Psychiatric Exam Psychiatric: Present: cooperative, flat affect Assessment and Plan (1) Renal insufficiency Status: Acute Category: Medical Code(s): N28.9 - Disorder of kidney and ureter, unspecified (2) Schizophrenia Status: Acute Category: Medical Code(s): F20.9 - Schizophrenia, unspecified (3) Rhabdomyolysis Status: Acute Qualifiers: Rhabdomyolysis type: non-traumatic Qualified Code(s): M62.82 - Rhabdomyolysis Category: Medical Code(s): M62.82 - Rhabdomyolysis (4) Altered mental status Status: Acute Qualifiers: Altered mental status type: disorientation Qualified Code(s): R41.0 - Disorientation, unspecified Category: Medical Code(s): R41.82 - Altered mental status, unspecified (5) C. difficile colitis Status: Acute Category: Medical Code(s): A04.72 - Enterocolitis due to Clostridium difficile, not specified as recurrent (6) Pneumonia due to COVID-19 virus Status: Acute Category: Medical Code(s): U07.1 - COVID-19; J12.82 - Pneumonia due to coronavirus disease 2019 (7) FRANCISCO (acute kidney injury) Status: Acute Category: Medical Code(s): N17.9 - Acute kidney failure, unspecified (8) SIRS (systemic inflammatory response syndrome) Status: Acute Category: Medical Code(s): R65.10 - Systemic inflammatory response syndrome (SIRS) of non-infectious origin without acute organ dysfunction - Assessment and plan all Dx Assessment and Plan for all problems:: #COVID-19 pneumonia: #Rhabdomyolysis: 56-year-old male no significant smoking history. No prior respiratory complaints. Admits received vaccine for COVID-19 pneumonia unclear of the dates. group home resident. Presented with weakness found to be having sleep with elevated CK rhabdomyolysis and was also tested positive for COVID-19 pneumonia. Denies any known sick contacts. Patient does not appear to be in any respiratory distress. On room air saturating 94% and above. Auscultation clear with no wheezing or crackles. Significantly elevated creatinine and is along with AST ALT and alk phos. Denies any known family history of sickle cell disease Though, chest x-ray is concerning for left lower lobe airspace disease, CT abdomen which include lower lung santos did not show any evidence of airspace disease/dense consolidation. Showed minimal groundglass opacities. Interval update: Patient respiratory status has been stable throughout his hospital course. He remains on room air. His predominant problem including rhabdomyolysis which can well be from COVID versus antipsychotic medications including Haldol. Medication review has been performed by primary team. His creatinine and CK improving throughout his hospital stay. We opted not to treat his COVID given asymptomatic respiratory status. Plan: -Continue to remain on room air. Will monitor clinically. #Thank you for involving pulmonary in this patient care. Will follow the patient in pulmonary clinic in 6 to 8 weeks.
[2022-04-09 12:00] VITALS: BP 136/76; PULSE 68; RESP 20; TEMP 36.8; O2SAT 96
--- NOTE | 2022-04-09 12:11 | HMH.DCSUM ---
General - General Admission date:: 04/03/22 Discharge date: 04/09/22 HPI HPI: 56-year-old male patient presented to the [facility] emergency department via EMS from [facility] for altered mental status and weakness. Patient reports he has felt weak for several days and has just not been feeling well. He denies fever/chills/body aches, nausea/vomiting/diarrhea, abdomen pain, and denies contact with any illness. Emergency department white blood cell count 3.9, hemoglobin 12 and hematocrit 38 BUN/creatinine 43/2.3, CK 19,503, AST 574, ALT [address] was negative Chest x-ray revealed mild left base atelectasis COVID-19 positive test He received 1 L of normal saline and then a maintenance rate Hospital Course Hospital Course: pt was admitted and treated with ivf and had improvement in renal function and rhabdomyolysis- pt had covid and was seen by [id number]-old male no significant smoking history. No prior respiratory complaints. Admits received vaccine for COVID-19 pneumonia unclear of the dates. longterm resident. Presented with weakness found to be having sleep with elevated CK rhabdomyolysis and was also tested positive for COVID-19 pneumonia. Denies any known sick contacts. Patient does not appear to be in any respiratory distress. On room air saturating 94% and above. Auscultation clear with no wheezing or crackles. Significantly elevated creatinine and is along with AST ALT and alk phos. His rhabdomyolysis can well be from a rare complication of COVID-19 pneumonia. Patient has had previous elevated CKs but never this high. Mainly having other possible underlying etiologies including sickle cell trait/myopathies. He denies any strenuous activities recently. He denies any known family history of sickle cell disease Though, chest x-ray is concerning for left lower lobe airspace disease, CT abdomen which include lower lung santos did not show any evidence of airspace disease/dense consolidation. Showed minimal groundglass opacities. Plan: -Given no acute respiratory symptoms, will hold off on initiating specific treatment for COVID-19 pneumonia at this point of time -Follow with CRP,LDH,CK and D-dimer -Continue IV fluids at 125/h with strict I&O's with a urine output goal of 125/h pt has slowly improved and has need to go to [facility] for rehab instead of skilled nursing - pt has [place]olia activity but still with dec po intake but improving - pt was found to have c diff and covid-19- vital signs ok and will continue abx at [facility] Objective Vital signs: Temp Pulse Resp BP Pulse Ox 98.1 F 64 18 130/74 97 04/09/22 07:36 04/09/22 07:36 04/09/22 07:36 04/09/22 07:36 04/09/22 07:36 no acute distress - *Routine HEENT Exam Head: Present: normocephalic Eye: Present: EOMI, PERRL ENT: Present: mucous membranes moist - *Routine Neck Exam Present: supple. Absent: JVD - *Routine Respiratory Exam Present: CTA bilaterally - *Routine Cardiovascular Exam Present: RRR, murmur - *Routine Abdominal Exam Present: soft. Absent: tenderness - *Routine Extremities Exam Present: edema - *Routine Skin Exam Present: intact - *Routine Neurological Exam Present: alert, CN II-XII intact - Routine Psychiatric Exam Present: cooperative Results Labs on day of discharge: Labs from last 24 hours 04/09/22 04/09/22 06:39 06:39 WBC 4.8 RBC 4.03 L Hgb 11.1 L Hct 35.8 L MCV 88.9 MCH 27.5 MCHC 30.9 L RDW 15.6 Plt Count 109 L MPV 9.6 Neut % (Auto) 66.4 Lymph % (Auto) 22.7 [place] % (Auto) 6.1 Eos % (Auto) 4.0 Baso % (Auto) 0.8 Neut # (Auto) 3.2 Lymph # (Auto) 1.1 [place] # (Auto) 0.3 Eos # (Auto) 0.2 Baso # (Auto) 0.0 Sodium 140 Potassium 4.4 D Chloride 119 H Carbon Dioxide 18 L Anion Gap 7.4 BUN 16 Creatinine 1.00 Estimated Creat Clear 112 Estimated GFR 77 Est GFR ( Amer) 93 Glucose 102 H Ca
--- NOTE | 2022-04-10 13:51 | CARE MANAGER ---
Contacted [facility] related to discharge from hospital. They state he was doing okay but they were concerned that he was not on any of his psych meds. Discussed that Dr. Trejo thought the patient may be getting rhabdomylosis from these meds. Nurse states that the patient is now having hallucinations. They will call and let Dr. Trejo know. FIOR Lal
[2022-04-21 17:27] LABS: Hep A Ab, IgM Negative; Hepatitis B Core Antibody IgM Negative; Hepatitis B Surface Antigen Negative; Hepatitis C Antibody 0.2
== END 2022-04-09 14:59 | DRG 177 ==
LOC: ER 18:39 → 2ND 19:41
PROVIDERS: Internal Medicine Pulmonary Disease; Nurse Practitioner Family; Admitting Provider Internal Medicine Adolescent Medicine; Emergency Provider Emergency Medicine; PCP Emergency Medicine; Visit Provider Emergency Medicine
DX: U07.1 COVID-19 (principal); J12.82 Pneumonia due to coronavirus disease 2019; M62.82 Rhabdomyolysis; A04.72 Enterocolitis due to Clostridium difficile, not specified as recurrent; N17.9 Acute kidney failure, unspecified; D69.59 Other secondary thrombocytopenia; E11.9 Type 2 diabetes mellitus without complications; Z79.4 Long term (current) use of insulin; F20.9 Schizophrenia, unspecified
CPT/HCPCS: 36415; 51702; 70450; 71045; 74176; 80048; 80053; 80074; 80076; 81001; 82550; 82962; 83605; 83615; 83690; 85007; 85025; 85378; 86140; 87040; 87086; 87507; 97110; 97116; 97163; 97165; 97530; 99285; C9803; J1956; J3370; U0003; U0005